=== PATIENT | male | born 1955 | race Caucasian/White ===

== ENCOUNTER → 2019-02-06 | Outpatient (CLI) | payer BC ==
--- NOTE | 2019-02-06 20:14 | CT ---
EXAMINATION TYPE: CT chest wo con DATE OF EXAM: 02/06/2019 COMPARISON: None HISTORY: 63-year-old male Cough. TECHNIQUE: Contiguous axial scanning of the chest without IV contrast. Coronal and sagittal reconstru ctions performed. CT DLP: 496.4 mGycm Automated exposure control for dose reduction was used. FINDINGS: The heart is normal size with trace anterior basilar pericardial fluid. Mild LAD calcifications are n oted. Aorta normal caliber with conventional arch vessel branching anatomy. Some prominent but not enlarged mediastinal lymph nodes measuring up to 7 mm in the precarinal region . No thoracic lymphadenopathy by CT size criteria. Very mild emphysematous change at the apices. Mild diffuse bronchial wall thickening. No consolidatio n or pleural effusion. There is an 8 mm and 5 mm nodularity along the minor fissure, axial image 31 and 33. 5 mm subpleural pulmonary nodule peripheral left base, axial image 42. 4 mm subpleural pulmonary nodule left upper lobe, axial image 21. Visualized upper abdomen shows no gross abnormality. Bones: Normal. Sternal foramina. Mild degenerative disc disease midthoracic spine. No osseous destruc tive process IMPRESSION: 1. COPD WITH VERY MILD EMPHYSEMA AT THE APICES. 2. A FEW SCATTERED PULMONARY NODULES, LARGEST MEASURING 8 MM AND THE SMALLEST MEASURING 4 MM. PER REV ISED FLEISCHNER GUIDELINES, CT IN 6-[address] IN 18-24 MONTHS IS RECOMMENDED TO ENSURE STABILITY AND A BENIGN ETIOLOGY.
== END | disposition home or self-care (01) ==
LOC: RADCTMAIN 16:56
PROVIDERS: ATTEND Internal Medicine
DX: J43.9 Emphysema, unspecified (principal); R91.8 Other nonspecific abnormal finding of lung field
CPT/HCPCS: 71250

== ENCOUNTER → 2019-02-28 | Outpatient (CLI) | payer BC | LOC: CPPFTMAIN 09:54 | PROVIDERS: ATTEND Internal Medicine | DX: R93.89 Abnormal findings on diagnostic imaging of other specified body structures (principal) | CPT/HCPCS: 94060; 94726; 94729 ==

== ENCOUNTER → 2020-05-15 | Outpatient (CLI) | payer MEDICARE ==
--- NOTE | 2020-05-15 10:51 | CT ---
EXAMINATION TYPE: CT chest wo con DATE OF EXAM: 05/15/2020 COMPARISON: Chest CT February 06, 2019 HISTORY: Other nonspecific abnormal findings of lung field CT DLP: 697 mGycm. Automated Exposure Control for Dose Reduction was Utilized. TECHNIQUE: CT scan of the thorax is performed without IV contrast. FINDINGS: LUNGS: There is stable 7 mm nodule right mid lung anteriorly image 31 and 2 adjacent 4 to 6 mm nodule s anterior and medial to this on same image and axial image 32. There is a stable 5 mm subpleural nod ule medially right mid lung axial image 32. Stable 4 to 5 mm subpleural nodule left lateral lung base recommended 45. Stable 3 mm peripheral nodule left upper lobectomy 20. No new greater than 4 mm pulm onary nodules or masses. No pleural effusion or pneumothorax seen bilaterally. Lungs remain clear. Mi ld underlying emphysematous change redemonstrated. MEDIASTINUM: Lack of IV contrast is noted to limit evaluation for mediastinal and especially hilar ad enopathy. There are no definitive new greater than 1 cm hilar or mediastinal lymph nodes. Scattered prominent but subcentimeter lymph nodes redemonstrated and stable. No cardiomegaly or pericardial eff usion is seen. Coronary artery calcification in the proximal LAD is redemonstrated. OTHER: Liver remains diffusely low dense consistent with mild diffuse fatty infiltration. Slight unde rlying scoliotic curvature with mild multilevel spurring in the spine. IMPRESSION: Overall stable findings. No new or enlarging nodules identified. Repeat CT in 18-24 month s after original study to document further stability advised as per Fleischner sided recommendations.
== END | disposition home or self-care (01) ==
LOC: RADCTMAIN 09:25
PROVIDERS: ATTEND Internal Medicine
DX: R91.8 Other nonspecific abnormal finding of lung field (principal)
CPT/HCPCS: 71250

== ENCOUNTER → 2021-04-28 | Outpatient (CLI) | payer MEDICARE ==
[2021-04-28 14:00] LABS: African American GFR (CKD) >90 (>60 ml/min/1.73 sqM); Blood Urea Nitrogen 19 mg/dL (9-20); Non-African American GFR(CKD) 90 (>60 ml/min/1.73 sqM)
--- NOTE | 2021-04-28 15:00 | CT ---
EXAMINATION TYPE: CT chest w con DATE OF EXAM: 04/28/2021 COMPARISON: 05/15/2020 HISTORY: Lung nodule CT DLP: 677 mGycm, Automated exposure control for dose reduction was used. CONTRAST: Performed injected with 100 mL of Isovue 300. TECHNIQUE: Axial images were obtained at 5 mm thick sections. Reconstructed images are reviewed on t he computer in the coronal plane. FINDINGS: Portion of the thyroid visualized is normal. There is a 1.0 cm nodule within the anterior right midlung. Series 4 image 29. This may be slightly l arger than the 0.7 cm previous. There is an adjacent slightly smaller nodule measuring 0.6 cm. Series 4 image 30. This is stable. A small nodule may be adjacent to the right mediastinal border measuring 0.4 cm. Series 4 image 31. T his is stable. There is a 0.7 cm nodule in the lateral left lung base. Series 4 image 42. This is stable. No enlarged mediastinal or hilar adenopathy is evident. The ascending aorta diameter at the level o f the main pulmonary artery is 3.3 cm. The main pulmonary artery diameter at the bifurcation is 2.[address] sections are obtained through the upper abdomen. Abdomen is essentially unremarkable. IMPRESSIONS: 1. Slight increase in size of a 1.0 cm nodule, increased from 0.7 cm within the right midlung. 2. Remaining bilateral lung nodules are stable in appearance and size
== END | disposition home or self-care (01) ==
LOC: RADCTMAIN 13:18
PROVIDERS: ATTEND Internal Medicine
DX: R91.8 Other nonspecific abnormal finding of lung field (principal)
CPT/HCPCS: 82565; 84520; 71260; 36415; Q9967

== ENCOUNTER → 2021-11-05 | Outpatient (CLI) | payer MEDICARE | END | disposition home or self-care (01) | LOC: RADCTMAIN 06:37 | PROVIDERS: ATTEND Internal Medicine | DX: R91.1 Solitary pulmonary nodule (principal) | CPT/HCPCS: 82565; 84520 ==

== ENCOUNTER → 2022-01-23 | Outpatient (CLI) | payer MEDICARE ==
[~2022-01-23] MED LIST: BEBTELOVIMAB (EUA) 175 MG/2 ML VIAL IV ONE; SODIUM CHLORIDE 0.9% 500 ML 500 ML in EMPTY BAG 1 BAG IV PRN
== END ==
LOC: PROCWHC3 11:55
PROVIDERS: ATTEND Physician Assistant
DX: Z53.9 Procedure and treatment not carried out, unspecified reason (principal)

== ENCOUNTER → 2022-07-15 | Outpatient (CLI) | payer MEDICARE ==
--- NOTE | 2022-07-15 08:06 | US ---
EXAMINATION TYPE: US duplex aorta DATE OF EXAM: 07/15/2022 COMPARISON: NONE CLINICAL HISTORY: Z13.6 SCREEN AAA. TECHNIQUE: Multiple sonographic images of the abdominal aorta are obtained. FINDINGS: EXAM MEASUREMENTS: Abdominal Aorta: AP x Width Proximal: 2.2 x 2.0 cm Mid: 2.1 x 1.8 cm Distal: 2.0 x 1.8 cm Bifurcation: RAJAT 1.3 x 1.3 cm DAVID 1.0 x 1.3 cm IMPRESSION: No ultrasound evidence for abdominal aortic aneurysm.
== END | disposition home or self-care (01) ==
LOC: RADUSWWP 07:38
PROVIDERS: ATTEND Family Medicine
DX: Z13.6 Encounter for screening for cardiovascular disorders (principal)
CPT/HCPCS: 93979

== ENCOUNTER 2023-02-05 10:45 | Observation (INO) | payer MEDICARE ==
[2023-02-05] MEDS ORDERED: NITROGLYCERIN OINT 1 INCH/GM PACKET TOPICAL STA (11:12)
[2023-02-05] MEDS ORDERED: ASPIRIN 81 MG PO STA (11:12)
--- NOTE | 2023-02-05 11:15 | ED ---
General Adult HPI - General Chief complaint: Recheck/Abnormal Lab/Rx Stated complaint: hypertension - sent by pcp Time Seen by Provider: 02/05/23 10:55 Source: patient, RN notes reviewed Mode of arrival: ambulatory Limitations: no limitations - History of Present Illness Initial comments: Patient is a pleasant 67-year-old male presenting to the emergency department with concerns for left arm discomfort. Symptoms have been somewhat progressive over the past couple of weeks. Patient is now having some discomfort in the chest as well. Discomfort is described as an ache. Chest discomfort is not present at this time and has been mild. Symptoms do worsen with exertion. Patient does have associated exertional dyspnea and fatigue. - Related Data Home Medications Medication Instructions Recorded Confirmed Multivitamin [Men's Multi-Vitamin] 1 tab PO DAILY 11/05/15 02/05/23 [place]-3 Fatty Acids/Fish Oil [Fish 1 cap PO DAILY 11/05/15 02/05/23 Oil 1,000 mg Softgel] Omeprazole [PriLOSEC] 20 mg PO DAILY 11/05/15 02/05/23 Cetirizine HCl [Zyrtec] 10 mg PO DAILY 02/05/23 02/05/23 Allergies Allergy/AdvReac Type Severity Reaction Status Date / Time shellfish derived [Shellfish] Allergy Nausea & Verified 02/05/23 12:40 Vomiting Review of Systems ROS Statement: Those systems with pertinent positive or pertinent negative responses have been documented in the HPI. ROS Other: All systems not noted in ROS Statement are negative. Constitutional: Denies: fever Eyes: Denies: eye pain ENT: Denies: ear pain Respiratory: Reports: as per HPI. Denies: cough Cardiovascular: Reports: as per HPI, chest pain Endocrine: Reports: fatigue Gastrointestinal: Denies: abdominal pain Genitourinary: Denies: dysuria Musculoskeletal: Denies: back pain Skin: Denies: rash Neurological: Denies: weakness Past Medical History Past Medical History: GERD/Reflux, Hypertension, Osteoarthritis (OA) History of Any Multi-Drug Resistant Organisms: None Reported Past Surgical History: Orthopedic Surgery Additional Past Surgical History / Comment(s): planter warts as child Past Anesthesia/Blood Transfusion Reactions: No Reported Reaction Past Psychological History: No Psychological Hx Reported Smoking Status: Light tobacco smoker Past Alcohol Use History: Occasional Past Drug Use History: None Reported General Exam Limitations: no limitations General appearance: alert, in no apparent distress Head exam: Present: normocephalic Eye exam: Present: normal appearance, PERRL, EOMI ENT exam: Present: normal exam Neck exam: Present: normal inspection. Absent: tenderness Respiratory exam: Present: normal lung sounds bilaterally. Absent: chest wall tenderness Cardiovascular Exam: Present: regular rate, normal rhythm, normal heart sounds Expanded Peripheral pulses: 2+: Radial (R), Radial (L), Posterior Tibialis (R), Posterior Tibialis (L), Dorsalis Pedis (R), Dorsalis Pedis (L) GI/Abdominal exam: Present: soft. Absent: tenderness Extremities exam: Present: normal inspection. Absent: pedal edema, calf tenderness Neurological exam: Present: alert, oriented X3, CN II-XII intact. Absent: motor sensory deficit Expanded Neurological exam: Present: protecting the airway Speech: Present: fluid speech Cranial nerves: EOM's Intact: Normal Motor strength exam: RUE: 5, LUE: 5, RLE: 5, LLE: 5 Eye Response: (4) open spontaneously Motor Response: (6) obeys commands Verbal Response: (5) oriented Psychiatric exam: Present: normal affect, normal mood Skin exam: Present: normal color Course Vital Signs 02/05/23 02/05/23 02/05/23 10:49 11:30 12:27 Temperature 98.1 F Pulse Rate 77 72 69 Respiratory 18 18 18 Rate Blood Pressure 171/103 167/103 150/92 O2 Sat by Pulse 96 98 100 Oximetry EKG Findings - EKG Results: EKG: interpreted by ERMD (Left axis. Q waves V1 and V2.), sinus rhythm, normal ST/T Medical Decision Making - Medical Decision Making Was pt. sent in by a medical professional or institution (, PA, RETORT FURNACE HELPER, urgent care, hospital, or assisted...) When possible be specific @ -Patient was sent in by his primary care physician Did you speak to anyone other than the patient for history (EMS, parent, family, police, friend...)? What history was obtained from this source @ -No Did you review nursing and triage notes (agree or disagree)? Why? @ -I reviewed and agree with nursing and triage notes Were old charts reviewed (outside hosp., previous admission, EMS record, old EKG, old radiological studies, urgent care reports/EKG's, assisted records)? Report findings @ -No old charts were reviewed Differential Diagnosis (chest pain, altered mental status, abdominal pain women, abdominal pain men, vaginal bleeding, weakness, fever, dyspnea, syncope, headache, dizziness, GI bleed, back pain, seizure, CVA, palpatations, mental health)? @ -Differential Chest Pain: Stable Angina, Unstable Angina, STEMI, NSTEMI Aortic Dissection, Pneumothorax, Musculoskeletal, Esophageal Spasm GERD, Cholecystitis, Pancreatitis, Zoster, this is not meant to be an all-inclusive list. EKG interpreted by me (3pts min.). @ -As above X-rays interpreted by me (1pt min.). @ -Chest x-ray shows some prominence of the right suprahilar region. Previous x-ray reviewed. Previous CT reviewed CT interpreted by me (1pt min.). @ -None done U/S interpreted by me (1pt. min.). @ -None done What testing was considered but not performed or refused? (CT, X-rays, U/S, labs)? Why? @ -None What meds were considered but not given or refused? Why? @ -None Did you discuss the management of the patient with other professionals (professionals i.e. , PA, RETORT FURNACE HELPER, lab, RT, psych nurse, geriatric social work professor, adult specialist, teacher, sales promotion officer, director of casework department)? Give summary @ -Case was discussed with Dr. Myrick, who will admit covering Dr. Wright Was smoking cessation discussed for >3mins.? @ -No Was critical care preformed (if so, how long)? @ -No Were there social determinants of health that impacted care today? How? (Homelessness, low income, unemployed, alcoholism, drug addiction, transportation, low edu. Level, literacy, decrease access to med. care, correction, rehab)? @ -No Was there de-escalation of care discussed even if they declined (Discuss DNR or withdrawal of care, Hospice)? DNR status @ -No What co-morbidities impacted this encounter? (DM, HTN, Smoking, COPD, CAD, Cancer, CVA, ARF, Chemo, Hep., AIDS, mental health diagnosis, sleep apnea, morbid obesity)? @ -None Was patient admitted / discharged? Hospital course, mention meds given and route, prescriptions, significant lab abnormalities, going to OR and other pertinent info. @ -Patient reevaluated and does feel a little bit better with Nitropaste. Patient updated on results and plan. Patient will be admitted Undiagnosed new problem with uncertain prognosis? @ -No Drug Therapy requiring intensive monitoring for toxicity (Heparin, Nitro, In sulin, Cardizem)? @ -No Were any procedures done? @ -No Diagnosis/symptom? @ -Chest pain Acute, or Chronic, or Acute on Chronic? @ -Acute Uncomplicated (without systemic symptoms) or Complicated (systemic symptoms)? @ -default Side effects of treatment? @ -No Exacerbation, Progression, or Severe Exacerbation? @ -No Poses a threat to life or bodily function? How? (Chest pain, [place], [place], pneumonia, PE, COPD, DKA, ARF, appy, cholecystitis, CVA, Diverticulitis, Homicidal, Suicidal, threat to staff... and all critical care pts) @ -No - Lab Data Result diagrams: 02/05/23 11:15 02/05/23 11:15 Lab Results 02/05/23 02/05/23 02/05/23 Range/Units 11:15 11:15 11:15 WBC 6.2 (3.8-10.6) k/uL RBC 4.95 (4.30-5.90) m/uL Hgb 15.0 (13.0-17.5) gm/dL Hct 43.5 (39.0-53.0) % MCV 87.9 (80.0-100.0) fL MCH 30.3 (25.0-35.0) pg MCHC 34.4 (31.0-37.0) g/dL RDW 13.5 (11.5-15.5) % Plt Count 227 (150-450) k/uL MPV 7.7 Neutrophils % 50 % Lymphocytes % 37 % Monocytes % 6 % Eosinophils % 4 % Basophils % 0 % Neutrophils # 3.1 (1.3-7.7) k/uL Lymphocytes # 2.3 (1.0-4.8) k/uL Monocytes # 0.4 (0-1.0) k/uL Eosinophils # 0.2 (0-0.7) k/uL Basophils # 0.0 (0-0.2) k/uL PT 10.3 (9.0-12.0) sec INR 1.0 (<1.2) APTT 24.1 (22.0-30.0) sec D-Dimer 0.27 (<0.60) mg/L FEU Sodium 140 (137-145) mmol/L Potassium 3.9 (3.5-5.1) mmol/L Chloride 109 H (98-107) mmol/L Carbon Dioxide 23 (22-30) mmol/L Anion Gap 8 mmol/L BUN 15 (9-20) mg/dL Creatinine 0.84 (0.66-1.25) mg/dL Est GFR (CKD-EPI)AfAm >90 (>60 ml/min/1.73 sqM) Est GFR (CKD-EPI)NonAf >90 (>60 ml/min/1.73 sqM) Glucose 94 (74-99) mg/dL Calcium 8.9 (8.4-10.2) mg/dL Magnesium 2.0 (1.6-2.3) mg/dL Total Bilirubin 0.9 (0.2-1.3) mg/dL AST 23 (17-59) U/L ALT 24 (4-49) U/L Alkaline Phosphatase 61 (38-126) U/L Troponin I (0.000-0.034) ng/mL NT-Pro-B Natriuret Pep pg/mL Total Protein 6.4 (6.3-8.2) g/dL Albumin 3.9 (3.5-5.0) g/dL 02/05/23 02/05/23 Range/Units 11:15 11:15 WBC (3.8-10.6) k/uL RBC (4.30-5.90) m/uL Hgb (13.0-17.5) gm/dL Hct (39.0-53.0) % MCV (80.0-100.0) fL MCH (25.0-35.0) pg MCHC (31.0-37.0) g/dL RDW (11.5-15.5) % Plt Count (150-450) k/uL MPV Neutrophils % % Lymphocytes % % Monocytes % % Eosinophils % % Basophils % % Neutrophils # (1.3-7.7) k/uL Lymphocytes # (1.0-4.8) k/uL Monocytes # (0-1.0) k/uL Eosinophils # (0-0.7) k/uL Basophils # (0-0.2) k/uL PT (9.0-12.0) sec INR (<1.2) APTT (22.0-30.0) sec D-Dimer (<0.60) mg/L FEU Sodium (137-145) mmol/L Potassium (3.5-5.1) mmol/L Chloride (98-107) mmol/L Carbon Dioxide (22-30) mmol/L Anion Gap mmol/L BUN (9-20) mg/dL Creatinine (0.66-1.25) mg/dL Est GFR (CKD-EPI)AfAm (>60 ml/min/1.73 sqM) Est GFR (CKD-EPI)NonAf (>60 ml/min/1.73 sqM) Glucose (74-99) mg/dL Calcium (8.4-10.2) mg/dL Magnesium (1.6-2.3) mg/dL Total Bilirubin (0.2-1.3) mg/dL AST (17-59) U/L ALT (4-49) U/L Alkaline Phosphatase (38-126) U/L Troponin I <0.012 (0.000-0.034) ng/mL NT-Pro-B Natriuret Pep 92 pg/mL Total Protein (6.3-8.2) g/dL Albumin (3.5-5.0) g/dL Disposition Clinical Impression: Chest pain Disposition: ADMITTED IP TO THIS HOSP Is patient prescribed a controlled substance at d/c from ED?: No Referrals: Deni Wright MD [Primary Care Provider] - 1-2 days Time of Disposition: 12:48
[2023-02-05 11:30] LABS: Basophils % (A) 0 %; Eosinophils # (A) 0.2 k/uL (0-0.7); Eosinophils % (A) 4 %; HCT 43.5 % (39.0-53.0); Lymphocytes # (A) 2.3 k/uL (1.0-4.8); Lymphocytes % (A) 37 %; MCH 30.3 pg (25.0-35.0); MCHC 34.4 g/dL (31.0-37.0); MCV 87.9 fL (80.0-100.0); Mean Platelet Volume 7.7; Monocytes # (A) 0.4 k/uL (0-1.0); Monocytes % (A) 6 %; Neutrophils # (A) 3.1 k/uL (1.3-7.7); Neutrophils % (A) 50 %; Platelet Count 227 k/uL (150-450); RBC 4.95 m/uL (4.30-5.90); RDW 13.5 % (11.5-15.5); WBC 6.2 k/uL (3.8-10.6)
--- NOTE | 2023-02-05 11:32 | XR ---
EXAMINATION TYPE: XR chest 2V DATE OF EXAM: 02/05/2023 11:28 AM COMPARISON: CT chest 11/11/2021, chest radiograph 09/13/2019 TECHNIQUE: XR chest 2V Frontal and lateral views of the chest. CLINICAL INDICATION:Male, 67 years old with history of Chest Pain; FINDINGS: Lungs/Pleura: There is no evidence of pleural effusion, focal consolidation, or pneumothorax. Chroni c senescent parenchyma change. Pulmonary vascularity: Unremarkable. Heart/mediastinum: Heart is normal in size. Prominence of the right suprahilar region. Musculoskeletal: No acute osseous pathology. IMPRESSION: Prominence of the right suprahilar region which may represent adenopathy versus other etiologies. Con associate business analyst further evaluation with CT chest.
[2023-02-05 11:57] LABS: ALT 24 U/L (4-49); AST 23 U/L (17-59); African American GFR (CKD) >90 (>60 ml/min/1.73 sqM); Albumin 3.9 g/dL (3.5-5.0); Alkaline Phosphatase 61 U/L (38-126); Anion Gap 8 mmol/L; Blood Urea Nitrogen 15 mg/dL (9-20); Calcium 8.9 mg/dL (8.4-10.2); Carbon Dioxide 23 mmol/L (22-30); Chloride 109 mmol/L (98-107); Glucose 94 mg/dL (74-99); Non-African American GFR(CKD) >90 (>60 ml/min/1.73 sqM); Potassium 3.9 mmol/L (3.5-5.1); Sodium 140 mmol/L (137-145); Total Bilirubin 0.9 mg/dL (0.2-1.3); Total Protein 6.4 g/dL (6.3-8.2)
[2023-02-05 12:07] LABS: Partial Thromboplastin Time 24.1 sec (22.0-30.0); Prothrombin Time 10.3 sec (9.0-12.0)
[2023-02-05] MEDS ORDERED: NITROGLYCERIN SL TABS 0.4 MG TAB SUBLINGUAL PRN (12:48)
[2023-02-05] MEDS: amLODIPine 5 MG TAB PO SCH (15:00)
[2023-02-05] MEDS: NITROGLYCERIN OINT 1 INCH/GM PACKET TOPICAL SCH ×2 (18:15→23:32)
[2023-02-05] MEDS ORDERED: RX INFO: IV CONTRAST WAS GIVEN 1 EACH MISC MISCELLANE PRN (18:30)
--- NOTE | 2023-02-05 18:35 | P.HPIM ---
History of Present Illness H&P Date: 02/05/23 History of Presenting Illness: Patient is a very pleasant 67-year-old male with a past medical history of hypertension, GERD, and osteoarthritis. He presented to the emergency de partment with a chief complaint of chest pain and left arm discomfort. Patient reports he has been experiencing intermittent pains to his left anterior chest off and on over the past couple of weeks but reports an increase in frequency with exertion. Patient reports today he began experiencing some pain in his chest which was just a mild ache but this radiated into his left arm and was accompanied by mild shortness of breath and fatigue. Patient denies any recent illnesses or infections, but does report overall noticing a decline in his daily abilities/function. Patient states he tires out more easily and feels short of breath with typical daily activities. He denies having any headache, lightheadedness, dizziness, palpitations, shortness of breath, cough or congestion, abdominal pain, nausea, vomiting, or experiencing any numbness/tingling/weakness/swelling in his extremities. He underwent full evaluation in the emergency department. Upon arrival to the emergency department patient was found to be in hypertensive urgency with blood pressure 171/103 with heart rate 77. EKG was completed showing normal sinus rhythm at 69 bpm with no noted T wave or ST abnormality showing no signs of acute ischemia. Labs completed and reviewed. CBC unremarkable. Coagulation profile normal findings with negative d-dimer of 0.27. CMP also unremarkable. Troponin negative at less than 0.012. ProBNP 92. Chest x-ray completed showing prominence of the right suprahilar region recommending further evaluation with CT chest. Discussed clinical findings, laboratory analysis, and imaging results with ED physician in detail. Patient being admitted under our services with consultation to cardiology. Review of systems: Pertinent positives and negatives as discussed in HPI, a complete review of systems was performed and all other systems are negative. Physical exam: Vital signs reviewed and stable. General: Nontoxic, no distress and appears stated age. Derm: Skin warm and dry, normal coloration for ethnicity. Head: Atraumatic, normocephalic and symmetric. Eyes: EOMs intact, no lid lag, and anicteric sclera Mouth: no lip lesions, mucus membranes moist Cardiovascular: regular rate and rhythm with normal S1S2, no murmur, positive posterior tibial pulses bilaterally, and cap refill < 2 seconds. Lungs: Respirations even, regular, and unlabored on room air. Lungs CTA bi laterally, no rhonchi, no rales, no wheezing, and no accessory muscle usage. Abdominal: soft, nontender to palpation, no guarding, no appreciable organomegaly Ext: ROM intact. No gross muscle atrophy, no edema, no contractures Neuro: Speech clear, face symmetrical and CN II-XII grossly intact with no noted focal neuro deficits Psych: Alert and oriented to person, place, time, and situation. Appropriate and pleasant affect. Assessment and Plan of Care: Chest pain radiating into left shoulder and arm, rule out acute coronary process Hypertensive urgency Abnormal imaging finding -Hypertensive urgency with blood pressure 171/103 with heart rate 77. -EKG was completed showing normal sinus rhythm at 69 bpm with no noted T wave or ST abnormality showing no signs of acute ischemia. -Labs completed and reviewed. CBC unremarkable. Coagulation profile normal findings with negative d-dimer of 0.27. CMP also unremarkable. Troponin negative at less than 0.012. ProBNP 92. -Chest x-ray completed showing prominence of the right suprahilar region recommending further evaluation with CT chest. -Discussed clinical findings, laboratory analysis, and imaging results with ED physician in detail. Patient being admitted under our services to observation unit with telemetry. -Cardiology was consulted. -Order placed for CT chest with contrast for further evaluation of prominence of the right suprahilar region. -Patient started on aspirin 325 daily -Order placed for amlodipine 5 mg daily and patient has had improvement of blood pressure currently 140/90. The patient is admitted with an anticipated less than 2 midnight stay for evaluation of chest pain CODE STATUS: Full code DVT prophylaxis: Lovenox Discussed with: Patient, RN, in ED physician Anticipated discharge date: 24-[address]: Home Patient was seen independently by Nurse Practitioner. This document was prepared using [employer] dictation software. Please allow for errors in warranty coordinator while rare they do occur. Krish Claudio NP rendered care for this patient independently, reviewed the findings and plan as documented in the note above. I did not physically speak with or examine the patient on this date. Past Medical History Past Medical History: GERD/Reflux, Hypertension, Osteoarthritis (OA) History of Any Multi-Drug Resistant Organisms: None Reported Past Surgical History: Orthopedic Surgery Additional Past Surgical History / Comment(s): planter warts as child Past Anesthesia/Blood Transfusion Reactions: No Reported Reaction Past Psychological History: No Psychological Hx Reported Smoking Status: Light tobacco smoker Past Alcohol Use History: Occasional Past Drug Use History: None Reported Medications and Allergies Home Medications Medication Instructions Recorded Confirmed Type Multivitamin [Men's Multi-Vitamin] 1 tab PO DAILY 11/05/15 02/05/23 History [place]-3 Fatty Acids/Fish Oil [Fish 1 cap PO DAILY 11/05/15 02/05/23 History Oil 1,000 mg Softgel] Omeprazole [PriLOSEC] 20 mg PO DAILY 11/05/15 02/05/23 History Cetirizine HCl [Zyrtec] 10 mg PO DAILY 02/05/23 02/05/23 History Atorvastatin [Lipitor] 20 mg PO HS 30 Days #30 tab 02/06/23 Rx amLODIPine [Norvasc] 5 mg PO DAILY 30 Days #30 tab 02/06/23 Rx Allergies Allergy/AdvReac Type Severity Reaction Status Date / Time shellfish derived [Shellfish] Allergy Nausea & Verified 02/05/23 12:40 Vomiting Physical Exam Vitals: Vital Signs Temp Pulse Resp BP Pulse Ox 02/05/23 12:27 69 18 150/92 100 02/05/23 11:30 72 18 167/103 98 02/05/23 10:49 98.1 F 77 18 171/103 96 Intake and Output 02/04/23 02/05/23 02/05/23 22:59 06:59 14:59 Other: Weight 106.594 kg Results CBC & Chem 7: 02/05/23 11:15 02/05/23 11:15 Labs: Abnormal Lab Results - Last 24 Hours (Table) 02/05/23 Range/Units 11:15 Chloride 109 H (98-107) mmol/L
[2023-02-05] MEDS ORDERED: ACETAMINOPHEN TAB 325 MG TAB PO STA (21:34)
--- NOTE | 2023-02-05 23:26 | CT ---
EXAM: CT Chest With Intravenous Contrast CLINICAL HISTORY: ITS.REASON CT Reason: x-ray showing prominence of the right suprahilar r TECHNIQUE: Axial computed tomography images of the chest with intravenous contrast. CTDI is 13.9 mGy and DLP is 547 mGy-cm. This CT exam was performed using one or more of the following dose reduction techniques: automated exposure control, adjustment of the mA and/or kV according to patient size, and/or use of iterative reconstruction technique. COMPARISON: CT chest with contrast dated 11/11/2021 FINDINGS: Lungs: There are multiple noncalcified pulmonary nodules in the right middle lobe, similar in number and morphology. The largest nodule along the minor fissure measures 7.5 mm, best appreciated on sagittal reformatted imaging and stable in size from the previous examination. The juxtapleural pulmonary nodule in the lateral basal segment of the left lower lobe measures 7.4 mm long axis from 5.1 mm previously. No focal airspace consolidation. Pleural space: Unremarkable. No pneumothorax. No significant effusion. Heart: Cardiac chambers are normal in size. Mild coronary artery calcification in the LAD distribution is of uncertain clinical significance. The pericardial effusion. Bones/joints: No acute osseous abnormality. No abnormal alignment. Soft tissues: Unremarkable. Vasculature: The thoracic aorta is normal in caliber. No dissection or aneurysm. Lymph nodes: No mediastinal lymphadenopathy. The largest precarinal lymph node measures 7 mm in short axis diameter from 6 mm previously. No hilar lymphadenopathy. IMPRESSION: 1. No mediastinal lymphadenopathy. The largest precarinal lymph node measures 7 mm in short axis diameter from 6 mm previously. No hilar lymphadenopathy. 2. The juxtapleural pulmonary nodule in the lateral basal segment of the left lower lobe measures 7.4 mm long axis from 5.1 mm previously. Fleischner Society Guidelines in low-risk patients (minimal or absent history of smoking or other known risk factors) recommend chest CT follow- up at 3-6 months. If stable consider an additional follow-up CT at 18-24 months. For high-risk patients (history of smoking or other known risk factors) recommend chest CT follow-up in 3-6 months and then at 18-24 months. 3. There are multiple noncalcified pulmonary nodules in the right middle lobe, similar in number and morphology. The largest nodule along the minor fissure measures 7.5 mm, best appreciated on sagittal reformatted imaging and stable in size from the previous examination. 4. No focal airspace consolidation. No pleural effusion or pneumothorax.
[2023-02-06 03:37] VITALS: RESP 18
[2023-02-06] MEDS: NITROGLYCERIN OINT 1 INCH/GM PACKET TOPICAL SCH (05:26)
[2023-02-06 07:30] VITALS: BP 144/86; PULSE 70; TEMP 97.7
[2023-02-06] MEDS: amLODIPine 5 MG TAB PO SCH (08:44)
[2023-02-06] MEDS ORDERED: LORATADINE 10 MG TAB PO SCH (09:00)
[2023-02-06] MEDS ORDERED: NON FORMULARY DRUG (Omega-3 Fatty Acids/Fish Oil [Fish Oil 1,000 Mg Softgel] 1 EACH Capsul PO SCH (09:00)
[2023-02-06] MEDS ORDERED: ASPIRIN 325 MG TAB PO SCH (09:00)
[2023-02-06] MEDS ORDERED: ENOXAPARIN 40 MG/0.4 ML SYRINGE SQ SCH (09:00)
[2023-02-06] MEDS ORDERED: PANTOPRAZOLE 40 MG TABLET PO SCH (09:00)
[2023-02-06 09:54] LABS: Chol/HDL Ratio 3.75 Ratio; LDL Cholesterol,Calculated 97.1 mg/dL (0.0-131.0)
--- NOTE | 2023-02-06 12:49 | P.DS ---
Providers Date of admission: 02/05/23 12:50 Expected date of discharge: 02/06/23 Attending physician: Mal Ng MD Consults: 02/05/23 12:48 Consult Physician Urgent Consulting Provider: Jayro Esquivel Consult Reason/Comments: cp Do you want consulting provider notified?: Yes Primary care physician: [facility] Course: Discharge Diagnosis: Chest pain radiating into left shoulder and arm, acute coronary event ruled out. Patient started on amlodipine 5 mg daily and atorvastatin 20 mg nightly. EKGs were evaluated showing normal sinus mechanism with no significant T-wave or ST abnormalities. Troponins were trended all negative at less than 0.0123 draws. Patient was evaluated by forest management professor and they're recommending outpatient stress test. Patient medically stable for discharge at this time and to follow up outpatient with her office next week for recommended stress testing. Hypertensive urgency, patient was started on amlodipine 5 mg daily. Blood pressure is much better controlled throughout the night and this morning. Patient being discharged home on amlodipine 5 mg daily and instructed to monitor blood pressures twice daily and document these findings and a daily log/Journal to bring with him to his next doctor's appointment, therefore additional changes may be made if needed to current dosing and/or additional antihypertensive medications can be added to his regimen. Blood pressure 144/86 upon discharge. Abnormal imaging finding, pulmonary nodules. CT chest with IV contrast was completed in radiology report reviewed stating no mediastinal lymphadenopathy with largest precarinal lymph node measuring 7 mm in short axis diameter from 6 mm previously, no hilar lymphadenopathy, the juxtapleural pulmonary nodule in the lateral basal segment of the left lower lobe measures 7.4 mm long access from 5.1 mm previously, multiple noncalcified pulmonary nodules in the right middle lobe similar in number and morphology from previous examinations with largest nodule along the minor fissure measuring 7.5 mm. Patient will need follow-up CT in 3-6 months and again in 18-24 months. Hospital Course: Patient is a very pleasant 67-year-old male with a past medical history of hypertension, GERD, and osteoarthritis. He presented to the emergency department with a chief complaint of chest pain and left arm discomfort. Kirstin ent reports he has been experiencing intermittent pains to his left anterior chest off and on over the past couple of weeks but reports an increase in frequency with exertion. Patient reports today he began experiencing some pain in his chest which was just a mild ache but this radiated into his left arm and was accompanied by mild shortness of breath and fatigue. Patient denies any recent illnesses or infections, but does report overall noticing a decline in his daily abilities/function. Patient states he tires out more easily and feels short of breath with typical daily activities. He denies having any headache, lightheadedness, dizziness, palpitations, shortness of breath, cough or congestion, abdominal pain, nausea, vomiting, or experiencing any numbness/tingling/weakness/swelling in his extremities. He underwent full evaluation in the emergency department. Upon arrival to the emergency department patient was found to be in hypertensive urgency with blood pressure 171/103 with heart rate 77. EKG was completed showing normal sinus rhythm at 69 bpm with no noted T wave or ST abnormality showing no signs of acute ischemia. Labs completed and reviewed. CBC unremarkable. Coagulation profile normal findings with negative d-dimer of 0.27. CMP also unremarkable. Troponin negative at less than 0.012. ProBNP 92. Chest x-ray completed showing prominence of the right suprahilar region recommending further evaluation with CT chest. Discussed clinical findings, laboratory analysis, and imaging results with ED physician in detail. Patient being admitted under our services with consultation to cardiology. Troponins were trended overnight all negative at less than 0.0123 draws. Lipid profile was unremarkable. Hemoglobin A1c was drawn but currently pending. Repeat morning EKG again showing normal sinus rhythm at 63 bpm and again with no noted T wave or ST abnormality showing no signs of acute ischemia. Medically, patient is stable at this time. Cardiology recommending outpatient stress testing with her office next week. Patient is free from any reports of chest pain and/or discomfort at this time and is medically stable for discharge home. Patient to follow up outpatient with PCP and cardiology as directed. Physical exam: Vital signs reviewed and stable. General: Nontoxic, no distress and appears stated age. Derm: Skin warm and dry, normal coloration for ethnicity. Head: Atraumatic, normocephalic and symmetric. Eyes: EOMs intact, no lid lag, and anicteric sclera Mouth: no lip lesions, mucus membranes moist Cardiovascular: regular rate and rhythm with normal S1S2, no murmur, positive posterior tibial pulses bilaterally, and cap refill < 2 seconds. Lungs: Respirations even, regular, and unlabored on room air. Lungs CTA bilaterally, no rhonchi, no rales, no wheezing, and no accessory muscle usage. Abdominal: soft, nontender to palpation, no guarding, no appreciable organomegaly Ext: ROM intact. No gross muscle atrophy, no edema, no contractures Neuro: Speech clear, face symmetrical and CN II-XII grossly intact with no noted focal neuro deficits Psych: Alert and oriented to person, place, time, and situation. Appropriate and pleasant affect. A total of 32 minutes of time were spent preparing this complex discharge summary. Pt was discharged on 02/06/23 at 12:40 PM. Patient was seen independently by Nurse Practitioner. This document was prepared using [employer] dictation software. Please allow for errors in bicycle ii assembler while rare they do occur. Plan - Discharge Summary New Discharge Prescriptions: New Atorvastatin [Lipitor] 20 mg PO HS 30 Days #30 tab amLODIPine [Norvasc] 5 mg PO DAILY 30 Days #30 tab Continue Omeprazole [PriLOSEC] 20 mg PO DAILY [place]-3 Fatty Acids/Fish Oil [Fish Oil 1,000 mg Softgel] 1 cap PO DAILY Multivitamin [Men's Multi-Vitamin] 1 tab PO DAILY Cetirizine HCl [Zyrtec] 10 mg PO DAILY Discharge Medication List Multivitamin [Men's Multi-Vitamin] 1 tab PO DAILY 11/05/15 [History] [place]-3 Fatty Acids/Fish Oil [Fish Oil 1,000 mg Softgel] 1 cap PO DAILY 11/05/15 [History] Omeprazole [PriLOSEC] 20 mg PO DAILY 11/05/15 [History] Cetirizine HCl [Zyrtec] 10 mg PO DAILY 02/05/23 [History] Atorvastatin [Lipitor] 20 mg PO HS 30 Days #30 tab 02/06/23 [Rx] amLODIPine [Norvasc] 5 mg PO DAILY 30 Days #30 tab 02/06/23 [Rx] Follow up Appointment(s)/Referral(s): Dandy Carrero MD [STAFF PHYSICIAN] - 1 Week (Office will call patient with date and time of appointment) Deni Wright MD [Primary Care Provider] - 1-2 days Activity/Diet/Wound Care/Special Instructions: Activity: As tolerated. Take breaks as needed. Diet: Heart healthy and carb consistent diet. Avoid salts, or foods with hidden salts such as canned or boxed foods and frozen dinners. Extra salt makes your heart work harder and traps the fluid in your body for longer. Special Instructions: Take all of your medications as directed and remember to keep all of your doctor's appointments and follow-up as needed. You will need a follow up CT chest in 3-6 months and again in 18-24 months secondary to small nodules noted on CT imaging. Recommend purchasing a blood pressure cuff from your local drugstore and monitoring her blood pressure twice daily at home. Please document these findings in a daily log/Journal tubing with you to her next doctor's appointment therefore additional changes in your antihypertensive medication dosing and/or additional medications may be added as needed to establish optimal blood pressure control. Thank you for allowing us to participate in your care, it was truly a pleasure having you for our patient!!! Discharge Disposition: HOME SELF-CARE
--- NOTE | 2023-02-06 15:54 | P.CRDCN ---
History of Present Illness Consult date: 02/06/23 Consult reason: chest pain History of present illness: This is Antwan Balderas NP, I'm dictating on behalf of Dr. Carrero's H&P and A&P The patient was interviewed and examined. HPI: Patient is a pleasant 67 year old male who presented to the hospital with complaints of chest pain. He reports that he has been having left arm pain, mostly at night, for almost a month now. He reports that the left arm would ache at night, and then go away. He reports it felt numb at times. He states over the last couple of days the aching pain in his arm progressively worsened, until last night when he was unable to sleep. He reports some associated f atigue. Patient presented to the ER for evaluation. EKG was completed which did not demonstrate any ST elevation or depression, or T-wave inversion. Serial troponins have been negative. Patient has a pertinent past medical history that includes GERD, hypertension. ROS: [No fever, chills, or rigors] [no cough, phlegm, or expectoration] [no nausea, vomiting, or diarrhea] [no hematuria, dysuria] [no musculoskelatal complaints] [no strokes or seizures] [no skin lesions] EXAMINATION: GENERAL: Well-appearing, well-nourished and in no acute distress. NECK: Supple without JVD or thyromegaly. LUNGS: Breath sounds clear to auscultation bilaterally. Respiration equal and unlabored. No wheezes, rales or rhonchi. HEART: Regular rate and rhythm without murmurs, rubs or gallops. S1 and S2 heard. EXTREMITIES: Normal range of motion, no edema. No clubbing or cyanosis. Peripheral pulses intact and strong. REVIEW OF LABS, ECG & MEDICAL DATA: LABS: White count 6.2, hemoglobin 15, platelets 227, sodium 140, potassium 3.9, chloride 109, BUN 15, creatinine 0.84, hemoglobin A1c 5.7, calcium 8.9, magnesium 2.0, serial troponins 3-less than 0.012, BNP 92, triglycerides 112, cholesterol 163, LDL 97, HDL 43.5 EKG: Normal sinus rhythm IMAGING: Chest x-ray dated 02/05/2023 demonstrates prominence of the right suprahilar region which may represent adenopathy versus other etiologies, consider further evaluation with CT chest. CT chest with IV contrast dated 02/05/2023 demonstrates no mediastinal lymphadenopathy, the largest precarinal lymph node measures 7 mm in short axis diameter from 6 mm previously, no hilar lymphadenopathy, the juxtapleural pulmonary nodule in the lateral basal segment of the left lower lobe measures 7.4 mm long axis from 5.1 mm previously. There are multiple noncalcified pulmonary nodules in the right middle lobe, similar in number and morphology, the largest nodule along the minor fissure measures 7.5 mm, best appreciated on sagittal reformatted imaging and stable in size from the previous examination, no focal air space consolidation, no pleural effusion or pneumothorax. VITALS: Temp 97.7, pulse 70, respirations 18, blood pressure 144/86, O2 saturation 96% on room air IMPRESSION: 1. Chest pain, not likely cardiac in nature 2. Left arm pain, not likely cardiac in nature PLAN: Start atorvastatin 21 g daily Continue amlodipine 5 mg daily at discharge Discontinue Nitropaste Have patient walk up and down the hallway. If no symptoms are present, may be discharged from a cardiac standpoint. Follow-up with Dr. Carrero in the office. Plan for outpatient stress test. Thank you for the consult and allowing us to participate in the care of this pa tiekelvin. Past Medical History Past Medical History: GERD/Reflux, Hypertension, Osteoarthritis (OA) History of Any Multi-Drug Resistant Organisms: None Reported Past Surgical History: Orthopedic Surgery Additional Past Surgical History / Comment(s): planter warts as child Past Anesthesia/Blood Transfusion Reactions: No Reported Reaction Past Psychological History: No Psychological Hx Reported Smoking Status: Light tobacco smoker Past Alcohol Use History: Occasional Past Drug Use History: None Reported Medications and Allergies Home Medications Medication Instructions Recorded Confirmed Type Multivitamin [Men's Multi-Vitamin] 1 tab PO DAILY 11/05/15 02/05/23 History [place]-3 Fatty Acids/Fish Oil [Fish 1 cap PO DAILY 11/05/15 02/05/23 History Oil 1,000 mg Softgel] Omeprazole [PriLOSEC] 20 mg PO DAILY 11/05/15 02/05/23 History Cetirizine HCl [Zyrtec] 10 mg PO DAILY 02/05/23 02/05/23 History Atorvastatin [Lipitor] 20 mg PO HS 30 Days #30 tab 02/06/23 Rx amLODIPine [Norvasc] 5 mg PO DAILY 30 Days #30 tab 02/06/23 Rx Allergies Allergy/AdvReac Type Severity Reaction Status Date / Time shellfish derived [Shellfish] Allergy Nausea & Verified 02/05/23 12:40 Vomiting Physical Exam Vitals: Vital Signs Temp Pulse Pulse Resp BP BP Pulse Ox 02/06/23 07:00 97.7 F 70 18 144/86 96 02/06/23 02:51 98.3 F 67 18 145/79 97 02/05/23 20:06 97.7 F 76 17 161/85 96 02/05/23 16:02 97.5 F L 97 16 181/92 96 02/05/23 14:57 68 18 149/107 98 02/05/23 14:00 80 18 140/90 99 02/05/23 12:27 69 18 150/92 100 02/05/23 11:30 72 18 167/103 98 02/05/23 10:49 98.1 F 77 18 171/103 96 Intake and Output 02/05/23 02/06/23 02/06/23 22:59 06:59 14:59 Other: # Voids 1 1 Weight 106.594 kg Results 02/05/23 11:15 02/05/23 11:15 Cardiac Enzymes 02/05/23 02/05/23 02/05/23 Range/Units 11:15 11:15 13:22 AST 23 (17-59) U/L Troponin I <0.012 <0.012 (0.000-0.034) ng/mL 02/05/23 Range/Units 16:59 AST (17-59) U/L Troponin I <0.012 (0.000-0.034) ng/mL Coagulation 02/05/23 Range/Units 11:15 PT 10.3 (9.0-12.0) sec APTT 24.1 (22.0-30.0) sec CBC 02/05/23 Range/Units 11:15 WBC 6.2 (3.8-10.6) k/uL RBC 4.95 (4.30-5.90) m/uL Hgb 15.0 (13.0-17.5) gm/dL Hct 43.5 (39.0-53.0) % Plt Count 227 (150-450) k/uL Comprehensive Metabolic Panel 02/05/23 Range/Units 11:15 Sodium 140 (137-145) mmol/L Potassium 3.9 (3.5-5.1) mmol/L Chloride 109 H (98-107) mmol/L Carbon Dioxide 23 (22-30) mmol/L BUN 15 (9-20) mg/dL Creatinine 0.84 (0.66-1.25) mg/dL Glucose 94 (74-99) mg/dL Calcium 8.9 (8.4-10.2) mg/dL AST 23 (17-59) U/L ALT 24 (4-49) U/L Alkaline Phosphatase 61 (38-126) U/L Total Protein 6.4 (6.3-8.2) g/dL Albumin 3.9 (3.5-5.0) g/dL Current Medications Generic Name Dose Route Start Last Admin Trade Name Freq PRN Reason Stop Dose Admin Amlodipine Besylate 5 mg 02/05/23 13:15 02/06/23 08:44 Amlodipine 5 Mg Tab PO 5 mg DAILY ALAN Administration Aspirin 325 mg 02/06/23 09:00 02/06/23 08:44 Aspirin 325 Mg Tab PO 325 mg DAILY ALAN Administration Atorvastatin Calcium 20 mg 02/06/23 21:00 Atorvastatin 20 Mg Tab PO HS [facility] Enoxaparin Sodium 40 mg 02/06/23 09:00 02/06/23 08:44 Enoxaparin 40 Mg/0.4 Ml Syringe SQ Not Given DAILY [facility] Loratadine 10 mg 02/06/23 09:00 02/06/23 08:44 Loratadine 10 Mg Tab PO 10 mg DAILY ALAN Administration Miscellaneous Information 1 each 02/05/23 18:30 Rx Info: Iv Contrast Was Given 1 Each [facility] [place] 02/07/23 18:31 DAILY PRN Per Protocol Nitroglycerin 0.4 mg 02/05/23 12:48 Nitroglycerin Sl Tabs 0.4 Mg Tab SUBLINGUAL Q5M PRN Chest Pain Non-Formulary Medication 1 cap 02/06/23 09:00 02/06/23 08:42 [place]-3 Fatty Acids/Fish Oil [Fish Oil 1,000 Mg Softgel] PO Not Given DAILY ALAN Pantoprazole Sodium 40 mg 02/06/23 09:00 02/06/23 08:44 Pantoprazole 40 Mg Tablet PO 40 mg DAILY ALAN Administration Intake and Output 02/05/23 02/06/23 02/06/23 22:59 06:59 14:59 Other: # Voids 1 1 Weight 106.594 kg 02/05/23 11:15 02/05/23 11:15
[2023-02-06] MEDS ORDERED: ATORVASTATIN 20 MG TAB PO SCH (21:00)
== END 2023-02-06 13:30 | disposition home or self-care (01) ==
LOC: EC 10:45 → 6NMEDSUR 12:50
PROVIDERS: ADMIT Student in an Organized Health Care Education/Training Program; ATTEND Student in an Organized Health Care Education/Training Program
DX: R07.9 Chest pain, unspecified (principal); I16.0 Hypertensive urgency; R91.8 Other nonspecific abnormal finding of lung field; K21.9 Gastro-esophageal reflux disease without esophagitis; I10 Essential (primary) hypertension; M19.90 Unspecified osteoarthritis, unspecified site; F17.200 Nicotine dependence, unspecified, uncomplicated; Z98.890 Other specified postprocedural states; Z79.899 Other long term (current) drug therapy; Z91.013 Allergy to seafood
CPT/HCPCS: 99284; 36415; 93005; 85379; 83880; 80061; 80053; 83735; 84484; 85025; 85610; 85730; 83036; 71046; 71260; G0378 ×2; Q9967

== ENCOUNTER → 2023-08-09 | Outpatient (CLI) | payer MEDICARE ==
--- NOTE | 2023-08-09 16:50 | US ---
EXAMINATION TYPE: US thyroid st tissue head/neck DATE OF EXAM: 08/09/2023 COMPARISON: NONE CLINICAL INDICATION: Male, 68 years old with history of R22.1 SWELL MASS LUMP NECK; Pt states palpabl e lump left posterior neck x few years TECHNIQUE: Multiple grayscale and color Doppler ultrasound images of the left posterior neck in the p atient's region of palpable abnormality were obtained. FINDINGS/IMPRESSION: There is a well-circumscribed ovoid mass within the soft tissues of the left pos terior neck measuring 4.5 x 1.8 x 5.7 cm. This demonstrates striations that blends in with the surrou nding tissue. No internal color flow. This is most consistent with a benign lipoma.
== END | disposition home or self-care (01) ==
LOC: RADUSWWP 16:20
PROVIDERS: ATTEND Family Medicine
DX: R22.1 Localized swelling, mass and lump, neck (principal)
CPT/HCPCS: 76536

== ENCOUNTER 2023-10-20 11:52 | Day surgery (SDC) | payer MEDICARE ==
[2023-10-14 17:42] VITALS: BMI 33.5
[~2023-10-20 11:52] MED LIST changes: -BEBTELOVIMAB (EUA) 175 MG/2 ML VIAL IV ONE; +DEXAMETHASONE SOD PHOSPHATE 4 MG/ML 1 ML VIAL IV ONE; +FAMOTIDINE 20 MG/2 ML VIAL IV PRN; +HYDROmorphone 0.5 MG/0.5 ML SYRINGE IVP PRN; +LACTATED RINGERS 1,000 ML IV SCH; +ONDANSETRON 4 MG/2 ML VIAL IVP ONE; +Pre Op ABX Message 1 EACH MISC MISCELLANE ONE; -SODIUM CHLORIDE 0.9% 500 ML 500 ML in EMPTY BAG 1 BAG IV PRN
[2023-10-20 12:27] VITALS: TEMP 97
[2023-10-20] MEDS ORDERED: fentaNYL (PF) 50 MCG/ML 2 ML AMP ONE (12:31)
[2023-10-20] MEDS ORDERED: PROPOFOL 10 MG/ML 20 ML VIAL IV ONE (12:31)
[2023-10-20] MEDS ORDERED: MIDAZOLAM 2 MG/2 ML VIAL ONE (12:31)
[2023-10-20] MEDS ORDERED: SUCCINYLCHOLINE CHLORIDE 200 MG/10 ML VIAL IV ONE (12:31)
[2023-10-20] MEDS ORDERED: KETOROLAC 15 MG/ML 1 ML VIAL ONE (12:31)
[2023-10-20] MEDS ORDERED: PHENYLEPHRINE-0.9% NACL SYG 1,000 MCG/10 ML SYRINGE ONE (12:31)
[2023-10-20] MEDS ORDERED: GLYCOPYRROLATE 0.2 MG/ML 2 ML VIAL ONE (12:31)
[2023-10-20] MEDS ORDERED: LIDOCAINE 1%-EPI 1:100,000 50 ML VIAL SQ ONE ×2 (12:53)
[2023-10-20] MEDS ORDERED: BACITRACIN ZINC 500 UNIT/GM OINT 28.4 GM TUBE TOPICAL ONE (13:30)
--- NOTE | 2023-10-20 13:39 | P.OP ---
Date of Procedure: 10/20/23 Preoperative Diagnosis: Left posterior neck Postoperative Diagnosis: Same Procedure(s) Performed: Excision left posterior neck lipoma 5x4 cm with complex closure- Anesthesia: THAISA Surgeon: Roberto Amanda Estimated Blood Loss (ml): 10 Pathology: other (Posterior neck mass) Condition: stable Disposition: PACU Indications for Procedure: This 68-year-old white male with a slowly enlarging subcutaneous mass left posterior neck over the upper trapezius Operative Findings: 5 x 4 cm left posterior lower neck lipoma well encapsulated down to the trapezius muscle Description of Procedure: Patient brought in the operative suite and placed in a supine position. The patient underwent induction of general anesthesia with oral endotracheal intubation without difficulty. The patient was turned on to a right lateral decubitus position with appropriate padding and positioning accomplished. The patient was then prepped and draped in usual aseptic fashion. 1% lidocaine with 1-100,000 epinephrine was infused subcutaneously in field block fashion. This was left to work for 7 minutes vasoconstrictive effect. An incision was made overlying the mass sharply through the skin and subcutaneous tissue and superficial muscular layer. The lipoma was visualized and excised from the surrounding tissue grossly entirely down to the trapezius muscle. Hemostasis was gained with electrocautery. Wound was copiously irrigated with sterile normal saline and good hemostasis remained. The deep and superficial subcutaneous layers were closed with inverted interrupted 3-0 Vicryl suture skin closed with running locking 4-0 Prolene suture. Bacitracin ointment and sterile pressure dressing was placed. The patient was allowed to emerge from general anesthesia having tolerated procedure well was extubated in the operating suite and transferred to postop recovery area in satisfactory condition.
[2023-10-20 14:07] VITALS: RESP 16
[2023-10-20 14:57] VITALS: BP 122/77; PULSE 89
== END 2023-10-20 14:55 | disposition home or self-care (01) ==
LOC: OR 11:52
PROVIDERS: ATTEND Otolaryngology
DX: D17.0 Benign lipomatous neoplasm of skin and subcutaneous tissue of head, face and neck (principal); I10 Essential (primary) hypertension; E78.5 Hyperlipidemia, unspecified; G47.33 Obstructive sleep apnea (adult) (pediatric); M19.90 Unspecified osteoarthritis, unspecified site; Z79.899 Other long term (current) drug therapy
CPT/HCPCS: 88304; 21552; C1763; J2250; J0330; J1100; J0690; J2405; J3010; J3490; J1885; J2704; J2371

== ENCOUNTER 2024-06-20 07:51 | Day surgery (SDC) | payer MEDICARE ==
[2024-06-15 10:37] VITALS: BMI 35.4
[2024-06-20 08:27] VITALS: TEMP 97.3
[2024-06-20] MEDS: IV FLUID CONTINUATION 1,000 ML IV ONE (08:34)
[2024-06-20] MEDS: LACTATED RINGERS 1,000 ML IV SCH (08:35)
[2024-06-20] MEDS ORDERED: LIDOCAINE 1% INJ 10MG/ML (20 ML MDV) ONE (09:05)
[2024-06-20] MEDS ORDERED: PROPOFOL 10 MG/ML 20 ML VIAL IV ONE (09:05)
--- NOTE | 2024-06-20 09:12 | P.GSHP ---
History of Present Illness H&P Date: 06/20/24 Chief Complaint: Colon cancer screening 69-year-old male here for colonoscopy. Patient's last colonoscopy 7 to 10 years ago. Thinks he has had history of colon polyps. Patient recently has had a small area of soreness along the side of the anus on the right-hand side. This has been present for the last 1 to 2 months. Past Medical History Past Medical History: GERD/Reflux, Hypertension, Osteoarthritis (OA) Additional Past Medical History / Comment(s): Umbilical hernia. Some hearing loss. History of Any Multi-Drug Resistant Organisms: None Reported Past Surgical History: Orthopedic Surgery Additional Past Surgical History / Comment(s): Planter warts as child, mass removed from right hand 09/28/23, lipoma removed from posterior neck 10/20/23.colonoscopy polyps, egd Past Anesthesia/Blood Transfusion Reactions: No Reported Reaction Additional Past Anesthesia/Blood Transfusion Reaction / Comment(s): no blood transfusion Smoking Status: Former smoker - Past Family History Mother Family Medical History: Dementia Medications and Allergies Home Medications Medication Instructions Recorded Confirmed Type Multivitamin [Men's Multi-Vitamin] 1 tab PO DAILY 11/05/15 06/15/24 History [place]-3 Fatty Acids/Fish Oil [Fish 1 cap PO DAILY 11/05/15 06/15/24 History Oil 1,000 mg Softgel] Omeprazole [PriLOSEC] 20 mg PO QAM 11/05/15 06/15/24 History Cetirizine HCl [Zyrtec] 10 mg PO DAILY 02/05/23 06/15/24 History Atorvastatin [Lipitor] 20 mg PO QAM 10/14/23 06/15/24 History amLODIPine [Norvasc] 5 mg PO QAM 10/14/23 06/15/24 History Allergies Allergy/AdvReac Type Severity Reaction Status Date / Time mussels Allergy severe Verified 06/15/24 10:25 vomiting that stretched the muscles&veins in my neck Surgical - Exam Vital Signs Temp Pulse Resp BP Pulse Ox 97.3 F L 73 20 162/69 94 L 06/20/24 08:25 06/20/24 08:25 06/20/24 08:25 06/20/24 08:25 06/20/24 08:25 Physical exam: General: Well-developed, well-nourished HEENT: Normocephalic, sclerae nonicteric Abdomen: Nontender, nondistended Extremities: No edema Neuro: Alert and oriented Assessment and Plan (1) Colon cancer screening Narrative/Plan: Will proceed with colonoscopy at this time. Current Visit: Yes Status: Acute Code(s): Z12.11 - ENCOUNTER FOR SCREENING FOR MALIGNANT NEOPLASM OF COLON SNOMED Code(s): 349414575
--- NOTE | 2024-06-20 09:25 | P.PCN ---
Date of Procedure: 06/20/24 Procedure(s) Performed: PREOPERATIVE DIAGNOSIS: Colon cancer screening POSTOPERATIVE DIAGNOSIS: Cecal polyp, diverticulosis, small external hemorrhoids PROCEDURE: Colonoscopy with snare polypectomy ANESTHESIA: MAC SURGEON: Jayy Bear M.D. SPECIMENS: Polyp ENDOSCOPIC PROCEDURE: The patient was placed on the endoscopy table in the left decubitus position. The Olympus colonoscope was inserted into the anus and passed under direct visualization to the base of the cecum. The appendiceal orifice was visualized. From that point the scope was slowly withdrawn inspecting all surfaces carefully. There was a very small polyp at the base of the cecum. This was removed using the snare with cautery technique. The remainder of the cecum ascending transverse descending sigmoid and rectum appeared normal. There was mild left-sided diverticulosis. Retroflexion at the anus was normal. The patient had circumferential external hemorrhoids present. Mild induration of the hemorrhoids on the right-hand side is what I believe the patient was noticing. This appeared minimally inflamed. There was no overlying mucosal abnormalities to suggest any neoplastic changes. No thrombosis was noted. The patient was taken to the recovery room in stable condition per anesthesia guidelines. RECOMMENDATIONS: Resume diet. Monitor perirectal complaints. Findings appear related to chronic inflammation.
[2024-06-20 09:30] VITALS: RESP 16
[2024-06-20 09:57] VITALS: BP 150/92; PULSE 76
== END 2024-06-20 10:06 | disposition home or self-care (01) ==
LOC: ORWHC2ENDO 07:51
PROVIDERS: ATTEND Surgery
DX: Z12.11 Encounter for screening for malignant neoplasm of colon
CPT/HCPCS: 45385; 88305

== ENCOUNTER 2024-07-10 09:53 | Observation (INO) | payer MEDICARE ==
--- NOTE | 2024-07-10 10:23 | ED ---
Abdominal Pain HPI - General Chief Complaint: Abdominal Pain Stated Complaint: gallbladder Time Seen by Provider: 07/10/24 10:06 Source: patient, RN notes reviewed Mode of arrival: ambulatory Limitations: no limitations - History of Present Illness Initial Comments: 69-year-old male presents emergency department complaint of right upper quadrant abdominal pain. Patient states he has had symptoms for the last 5 to 6 days. It is sometimes worse with what he eats or moves around. Patient states he was seen in urgent care with his primary care physician who told him is more likely his gallbladder. Patient states he was trying to follow-up with his prior surgeon Dr. Bear but states pain is worsened. - Related Data Home Medications Medication Instructions Recorded Confirmed Atorvastatin [Lipitor] 20 mg PO DAILY 10/14/23 07/10/24 amLODIPine [Norvasc] 5 mg PO DAILY 10/14/23 07/10/24 Allergies Allergy/AdvReac Type Severity Reaction Status Date / Time mussels Allergy severe Verified 07/10/24 10:34 vomiting that stretched the muscles&veins in my neck Review of Systems ROS Statement: Those systems with pertinent positive or pertinent negative responses have been documented in the HPI. ROS Other: All systems not noted in ROS Statement are negative. Past Medical History Past Medical History: GERD/Reflux, Hypertension, Osteoarthritis (OA) Additional Past Medical History / Comment(s): Umbilical hernia. Some hearing loss. History of Any Multi-Drug Resistant Organisms: None Reported Past Surgical History: Hernia Repair Additional Past Surgical History / Comment(s): Planter warts as child, mass removed from right hand 09/28/23, lipoma removed from posterior neck 10/20/23. Cyst Hand. Past Anesthesia/Blood Transfusion Reactions: No Reported Reaction Past Psychological History: No Psychological Hx Reported Smoking Status: Former smoker Past Alcohol Use History: Occasional Past Drug Use History: None Reported - Past Family History Mother Family Medical History: Dementia General Exam Limitations: no limitations General appearance: alert, in no apparent distress Head exam: Present: atraumatic, normocephalic, normal inspection Eye exam: Present: normal appearance, PERRL, EOMI. Absent: scleral icterus, conjunctival injection, periorbital swelling ENT exam: Present: normal exam, mucous membranes moist Neck exam: Present: normal inspection, full ROM. Absent: tenderness, me ningismus, lymphadenopathy Respiratory exam: Present: normal lung sounds bilaterally. Absent: respiratory distress, wheezes, rales, rhonchi, stridor Cardiovascular Exam: Present: regular rate, normal rhythm, normal heart sounds. Absent: systolic murmur, diastolic murmur, rubs, gallop, clicks GI/Abdominal exam: Present: soft, tenderness, normal bowel sounds. Absent: distended, guarding, rebound, rigid Back exam: Absent: CVA tenderness (R), CVA tenderness (L) Neurological exam: Present: alert Course Vital Signs 07/10/24 10:02 Temperature 98.3 F Pulse Rate 71 Respiratory 20 Rate Blood Pressure 158/86 O2 Sat by Pulse 96 Oximetry Medical Decision Making - Medical Decision Making Was pt. sent in by a medical professional or institution (, PA, CHART PICKER, urgent care, hospital, or [facility]...) When possible be specific @ -No Did you speak to anyone other than the patient for history (EMS, parent, family, police, friend...)? What history was obtained from this source @ -No Did you review nursing and triage notes (agree or disagree)? Why? @ -I reviewed and agree with nursing and triage notes Were old charts reviewed (outside hosp., previous admission, EMS record, old EKG, old radiological studies, urgent care reports/EKG's, [facility] records)? Report findings @ -No old charts were reviewed Differential Diagnosis (chest pain, altered mental status, abdominal pain women, abdominal pain men, vaginal bleeding, weakness, fever, dyspnea, syncope, headache, dizziness, GI bleed, back pain, seizure, CVA, palpatations, mental health, musculoskeletal)? @ -Differential Abdominal Pain Men: Appendicitis, cholecystitis, diverticulosis, ischemic bowel, pancreatitis, hepatitis, UTI, gastroenteritis, AAA, incarcerated hernia, bowel obstruction, constipation, inflammatory bowel, hepatitis, peptic ulcer disease, splenic infarction, perforated viscus, testicular torsion, this is not meant to be an all-inclusive list EKG interpreted by me (3pts min.). @ -None X-rays interpreted by me (1pt min.). @ -None done CT interpreted by me (1pt min.). @ -None done U/S interpreted by me (1pt. min.). @ -ALT none shows enlarged gallbladder, obscured common bile duct, fluid collection noted next to the gallbladder What testing was considered but not performed or refused? (CT, X-rays, U/S, labs)? Why? @ -None What meds were considered but not given or refused? Why? @ -None Did you discuss the management of the patient with other professionals (omar hernandez i.e. , PA, CHART PICKER, lab, RT, psych nurse, elementary school social worker, aboriginal education teacher, teacher, parking regulation enforcement officer, employment case manager)? Give summary @ -Dr. Monk for admission Was smoking cessation discussed for >3mins.? @ -No Was critical care preformed (if so, how long)? @ -No Were there social determinants of health that impacted care today? How? (Homelessness, low income, unemployed, alcoholism, drug addiction, t ransportation, low edu. Level, literacy, decrease access to med. care, assisted, rehab)? @ -No Was there de-escalation of care discussed even if they declined (Discuss DNR or withdrawal of care, Hospice)? DNR status @ -No What co-morbidities impacted this encounter? (DM, HTN, Smoking, COPD, CAD, Cancer, CVA, ARF, Chemo, Hep., AIDS, mental health diagnosis, sleep apnea, morbid obesity)? @ -None Was patient admitted / discharged? Hospital course, mention meds given and route, prescriptions, significant lab abnormalities, going to OR and other pertinent info. @ -Admitted patient will have inpatient HIDA scan with starting IV antibiotics for cholecystitis, possible biliary dyskinesia Undiagnosed new problem with uncertain prognosis? @ -No Drug Therapy requiring intensive monitoring for toxicity (Heparin, Nitro, Insulin, Cardizem)? @ -No Were any procedures done? @ -No Diagnosis/symptom? @ -Cholecystitis Acute, or Chronic, or Acute on Chronic? @ -Acute Uncomplicated (without systemic symptoms) or Complicated (systemic symptoms)? @ -Uncomplicated Side effects of treatment? @ -No Exacerbation, Progression, or Severe Exacerbation? @ -No Poses a threat to life or bodily function? How? (Chest pain, [place], [place], pneumonia, PE, COPD, DKA, ARF, appy, cholecystitis, CVA, Diverticulitis, Homicidal, Otliia cidal, threat to staff... and all critical care pts) @ -No - Lab Data Result diagrams: 07/10/24 10:27 07/10/24 10:27 Lab Results 07/10/24 07/10/24 07/10/24 Range/Units 10:27 10:27 10:27 WBC 7.6 (3.8-10.6) k/uL RBC 4.94 (4.30-5.90) m/uL Hgb 15.0 (13.0-17.5) gm/dL Hct 45.3 (39.0-53.0) % MCV 91.6 (80.0-100.0) fL MCH 30.3 (25.0-35.0) pg MCHC 33.1 (31.0-37.0) g/dL RDW 13.1 (11.5-15.5) % Plt Count 247 (150-450) k/uL MPV 7.7 Neutrophils % 61 % Lymphocytes % 26 % Monocytes % 7 % Eosinophils % 3 % Basophils % 0 % Neutrophils # 4.6 (1.3-7.7) k/uL Lymphocytes # 2.0 (1.0-4.8) k/uL Monocytes # 0.5 (0-1.0) k/uL Eosinophils # 0.2 (0-0.7) k/uL Basophils # 0.0 (0-0.2) k/uL Sodium 141 (137-145) mmol/L Potassium 4.2 (3.5-5.1) mmol/L Chloride 109 H (98-107) mmol/L Carbon Dioxide 28 (22-30) mmol/L Anion Gap 4 mmol/L BUN 13 (9-20) mg/dL Creatinine 0.95 (0.66-1.25) mg/dL Est GFR (CKD-EPI)AfAm >90 (>60 ml/min/1.73 sqM) Est GFR (CKD-EPI)NonAf 81 (>60 ml/min/1.73 sqM) Glucose 101 H (74-99) mg/dL Plasma Lactic Acid Syed 1.0 (0.7-2.0) mmol/L Calcium 9.2 (8.4-10.2) mg/dL Total Bilirubin 1.0 (0.2-1.3) mg/dL AST 16 L (17-59) U/L ALT 17 (4-49) U/L Alkaline Phosphatase 82 (38-126) U/L Total Protein 6.2 L (6.3-8.2) g/dL Albumin 3.7 (3.5-5.0) g/dL Lipase 89 (23-300) U/L Urine Color Urine Appearance (Clear) Urine pH (5.0-8.0) Ur Specific [place] (1.001-1.035) Urine Protein (Negative) Urine Glucose (UA) (Negative) Urine Ketones (Negative) Urine Blood (Negative) Urine Nitrite (Negative) Urine Bilirubin (Negative) Urine Urobilinogen (<2.0) mg/dL Ur Leukocyte Esterase (Negative) Urine RBC (0-5) /hpf Urine WBC (0-5) /hpf Urine Mucus (None) /hpf 07/10/24 Range/Units 10:59 WBC (3.8-10.6) k/uL RBC (4.30-5.90) m/uL Hgb (13.0-17.5) gm/dL Hct (39.0-53.0) % MCV (80.0-100.0) fL MCH (25.0-35.0) pg MCHC (31.0-37.0) g/dL RDW (11.5-15.5) % Plt Count (150-450) k/uL MPV Neutrophils % % Lymphocytes % % Monocytes % % Eosinophils % % Basophils % % Neutrophils # (1.3-7.7) k/uL Lymphocytes # (1.0-4.8) k/uL Monocytes # (0-1.0) k/uL Eosinophils # (0-0.7) k/uL Basophils # (0-0.2) k/uL Sodium (137-145) mmol/L Potassium (3.5-5.1) mmol/L Chloride (98-107) mmol/L Carbon Dioxide (22-30) mmol/L Anion Gap mmol/L BUN (9-20) mg/dL Creatinine (0.66-1.25) mg/dL Est GFR (CKD-EPI)AfAm (>60 ml/min/1.73 sqM) Est GFR (CKD-EPI)NonAf (>60 ml/min/1.73 sqM) Glucose (74-99) mg/dL Plasma Lactic Acid Syed (0.7-2.0) mmol/L Calcium (8.4-10.2) mg/dL Total Bilirubin (0.2-1.3) mg/dL AST (17-59) U/L ALT (4-49) U/L Alkaline Phosphatase (38-126) U/L Total Protein (6.3-8.2) g/dL Albumin (3.5-5.0) g/dL Lipase (23-300) U/L Urine Color Light Yellow Urine Appearance Clear (Clear) Urine pH 6.5 (5.0-8.0) Ur Specific [place] 1.019 (1.001-1.035) Urine Protein Negative (Negative) Urine Glucose (UA) Negative (Negative) Urine Ketones Negative (Negative) Urine Blood Trace H (Negative) Urine Nitrite Negative (Negative) Urine Bilirubin Negative (Negative) Urine Urobilinogen <2.0 (<2.0) mg/dL Ur Leukocyte Esterase Negative (Negative) Urine RBC 4 (0-5) /hpf Urine WBC <1 (0-5) /hpf Urine Mucus Moderate H (None) /hpf Disposition Clinical Impression: Cholecystitis Disposition: ADMITTED IP TO THIS HOSP Condition: Fair Referrals: Deni Wright MD [Primary Care Provider] - 1-2 days Time of Disposition: 13:18
[2024-07-10] MEDS: SODIUM CHLORIDE 0.9% 1,000 ML IV STA (10:30)
[2024-07-10 10:36] LABS: Basophils % (A) 0 %; Eosinophils # (A) 0.2 k/uL (0-0.7); Eosinophils % (A) 3 %; HCT 45.3 % (39.0-53.0); Lymphocytes % (A) 26 %; MCH 30.3 pg (25.0-35.0); MCHC 33.1 g/dL (31.0-37.0); MCV 91.6 fL (80.0-100.0); Mean Platelet Volume 7.7; Monocytes # (A) 0.5 k/uL (0-1.0); Monocytes % (A) 7 %; Neutrophils # (A) 4.6 k/uL (1.3-7.7); Neutrophils % (A) 61 %; Platelet Count 247 k/uL (150-450); RBC 4.94 m/uL (4.30-5.90); RDW 13.1 % (11.5-15.5); WBC 7.6 k/uL (3.8-10.6)
[2024-07-10 10:49] LABS: ALT 17 U/L (4-49); AST 16 U/L (17-59); African American GFR (CKD) >90 (>60 ml/min/1.73 sqM); Albumin 3.7 g/dL (3.5-5.0); Alkaline Phosphatase 82 U/L (38-126); Anion Gap 4 mmol/L; Blood Urea Nitrogen 13 mg/dL (9-20); Calcium 9.2 mg/dL (8.4-10.2); Carbon Dioxide 28 mmol/L (22-30); Chloride 109 mmol/L (98-107); Glucose 101 mg/dL (74-99); Lipase 89 U/L (23-300); Non-African American GFR(CKD) 81 (>60 ml/min/1.73 sqM); Potassium 4.2 mmol/L (3.5-5.1); Sodium 141 mmol/L (137-145); Total Protein 6.2 g/dL (6.3-8.2)
[2024-07-10 11:12] LABS: Appearance,Urine Clear (Clear); Bilirubin,Urine Negative (Negative); Blood,Urine Trace (Negative); Color,Urine Light Yellow; Glucose,Urine (UA) Negative (Negative); Ketones,Urine Negative (Negative); Leukocyte Esterase,Urine Negative (Negative); Mucus,Urine Moderate /hpf; Nitrite,Urine Negative (Negative); PH, Urine 6.5 (5.0-8.0); Protein,Urine Negative (Negative); RBC,Urine 4 /hpf (0-5); Specific Gravity,Urine 1.019 (1.001-1.035); Urobilinogen,Urine <2.0 mg/dL (<2.0); WBC,Urine <1 /hpf (0-5)
--- NOTE | 2024-07-10 11:20 | US ---
EXAMINATION TYPE: US gallbladder DATE OF EXAM: 07/10/2024 COMPARISON: NONE CLINICAL INDICATION: Male, 69 years old with history of pain; Pain TECHNIQUE: Grayscale and color Doppler imaging of the right upper quadrant. FINDINGS: EXAM MEASUREMENTS: Liver Length: 16.8 cm Gallbladder Wall: 0.26 cm CBD: Obscured Right Kidney: 10.9 x 5.6 x 5.6 cm TICKER INSTALLER NOTES: Exam is very limited due to gas. Pancreas: Obscured Liver: *Increased attenuation and echogenicity. Heterogeneous, limited. Hypoechoic area seen adjacen t to the gallbladder: 2.4 x 0.8 x 1.0 cm. Gallbladder: *Measures 9.5 cm in length. Limited visibility of neck. Evidence for sonographic Naylor's sign: No CBD: Obscured Right Kidney: Hyperechoic area seen lower pole: 1.3 x 1.1 x 1.3 cm. IMPRESSION: 1. Hepatic steatosis with focal fatty sparing in the gallbladder fossa. 2. Distended gallbladder without evidence for acute cholecystitis. [facility], , 07/10/2024 11:18 AM
[2024-07-10] MEDS ORDERED: NALOXONE 0.4 MG/ML 1 ML VIAL IV PRN (13:18)
[2024-07-10] MEDS: SODIUM CHLORIDE 0.9% 1,000 ML IV SCH (14:19)
--- NOTE | 2024-07-10 14:44 | P.GSCN ---
History of Present Illness Consult date: 07/10/24 History of present illness: CHIEF COMPLAINT: Right upper quadrant abdominal pain HISTORY OF PRESENT ILLNESS: This is a 69-year-old male who presented to the hospital with complaints of right upper quadrant abdominal pain for the past 5 days. He does report that the pain is worse with movement. He reports that the pain radiates to the back at times. He denies any nausea or vomiting. Denies any fevers chills or sweats. Gallbladder ultrasound had reported a fatty liver and distended gallbladder. Past abdominal surgical history does include an umbilical hernia repair. Patient admitted to the hospital for cholecystitis. PAST MEDICAL HISTORY: GERD/Reflux, Hypertension, Osteoarthritis (OA) PAST SURGICAL HISTORY: Umbilical hernia repair MEDICATIONS: See below ALLERGIES: See below SOCIAL HISTORY: No illicit drug use. REVIEW OF SYSTEMS: CONSTITUTIONAL: Denies fever or chills. HEENT: Denies blurred vision, vision changes, or eye pain. Denies hemoptysis CARDIOVASCULAR: Denies chest pain or pressure. RESPIRATORY: No shortness of breath. GASTROINTESTINAL: See HPI for pertinent findings HEMATOLOGIC: Denies bleeding disorders. GENITOURINARY: Denies any blood in urine or increased urinary frequency. SKIN: Denies pruitis. Denies rash. PHYSICAL EXAM: VITAL SIGNS: Reviewed GENERAL: Well-developed in no acute distress. HEENT: No sclera icterus. Extraocular movements grossly intact. Moist buccal mucosa. Head is atraumatic, normocephalic. No nasal drainage. ABDOMEN: Soft. Nondistended. NEUROLOGIC: Alert and oriented. Cranial nerves II through XII grossly intact. LABORATORY DATA: WBC 7.6 Hgb 15 platelets 247 Sodium 141 potassium 4.2 creatinine 0.95 Lactic acid 1.0 Total bili 1.0 LFTs normal Lipase 89 IMAGING: Gallbladder ultrasound reports hepatic steatosis with focal fatty sparing in the gallbladder fossa. Distended gallbladder without evidence for acute cholecystitis ASSESSMENT: 1. Right upper quadrant abdominal pain with distended gallbladder noted on ultrasound. Possible cholecystitis. PLAN: -Patient is tentatively scheduled for laparoscopic cholecystectomy tomorrow -Patient scheduled for HIDA scan -Keep patient n.p.o. -Continue IV fluids -Continue pain management -Continue antibiotics Physician Food And Beverage Lead note has been reviewed by physician. Signing provider agrees with the documented findings, assessment, and plan of care. Past Medical History Past Medical History: GERD/Reflux, Hypertension, Osteoarthritis (OA) Additional Past Medical History / Comment(s): Umbilical hernia. Some hearing loss. History of Any Multi-Drug Resistant Organisms: None Reported Past Surgical History: Hernia Repair Additional Past Surgical History / Comment(s): Planter warts as child, mass removed from right hand 09/28/23, lipoma removed from posterior neck 10/20/23. Cyst Hand. Past Anesthesia/Blood Transfusion Reactions: No Reported Reaction Past Psychological History: No Psychological Hx Reported Smoking Status: Former smoker Past Alcohol Use History: Occasional Past Drug Use History: None Reported - Past Family History Mother Family Medical History: Dementia Medications and Allergies Home Medications Medication Instructions Recorded Confirmed Type Atorvastatin [Lipitor] 20 mg PO DAILY 10/14/23 07/10/24 History amLODIPine [Norvasc] 5 mg PO DAILY 10/14/23 07/10/24 History Allergies Allergy/AdvReac Type Severity Reaction Status Date / Time mussels Allergy severe Verified 07/10/24 10:34 vomiting that stretched the muscles&veins in my neck Surgical - Exam Vital Signs Temp Pulse Resp BP Pulse Ox 98.3 F 71 20 158/86 96 07/10/24 10:02 07/10/24 10:02 07/10/24 10:02 07/10/24 10:02 07/10/24 10:02 Results - Labs 07/10/24 10:27 07/10/24 10:27 Abnormal Lab Results - Last 24 Hours (Table) 07/10/24 07/10/24 Range/Units 10:27 10:59 Chloride 109 H (98-107) mmol/L Glucose 101 H (74-99) mg/dL AST 16 L (17-59) U/L Total Protein 6.2 L (6.3-8.2) g/dL Urine Blood Trace H (Negative) Urine Mucus Moderate H (None) /hpf Diabetes panel 07/10/24 Range/Units 10:27 Sodium 141 (137-145) mmol/L Potassium 4.2 (3.5-5.1) mmol/L Chloride 109 H (98-107) mmol/L Carbon Dioxide 28 (22-30) mmol/L BUN 13 (9-20) mg/dL Creatinine 0.95 (0.66-1.25) mg/dL Glucose 101 H (74-99) mg/dL Calcium 9.2 (8.4-10.2) mg/dL AST 16 L (17-59) U/L ALT 17 (4-49) U/L Alkaline Phosphatase 82 (38-126) U/L Total Protein 6.2 L (6.3-8.2) g/dL Albumin 3.7 (3.5-5.0) g/dL Calcium panel 07/10/24 Range/Units 10:27 Calcium 9.2 (8.4-10.2) mg/dL Albumin 3.7 (3.5-5.0) g/dL Pituitary panel 07/10/24 Range/Units 10:27 Sodium 141 (137-145) mmol/L Potassium 4.2 (3.5-5.1) mmol/L Chloride 109 H (98-107) mmol/L Carbon Dioxide 28 (22-30) mmol/L BUN 13 (9-20) mg/dL Creatinine 0.95 (0.66-1.25) mg/dL Glucose 101 H (74-99) mg/dL Calcium 9.2 (8.4-10.2) mg/dL Adrenal panel 07/10/24 Range/Units 10:27 Sodium 141 (137-145) mmol/L Potassium 4.2 (3.5-5.1) mmol/L Chloride 109 H (98-107) mmol/L Carbon Dioxide 28 (22-30) mmol/L BUN 13 (9-20) mg/dL Creatinine 0.95 (0.66-1.25) mg/dL Glucose 101 H (74-99) mg/dL Calcium 9.2 (8.4-10.2) mg/dL Total Bilirubin 1.0 (0.2-1.3) mg/dL AST 16 L (17-59) U/L ALT 17 (4-49) U/L Alkaline Phosphatase 82 (38-126) U/L Total Protein 6.2 L (6.3-8.2) g/dL Albumin 3.7 (3.5-5.0) g/dL
[2024-07-10] MEDS: PIPERACILLIN-TAZOBACTAM 3.375 GM in SODIUM CHLORIDE 0.9% 100 ML IVPB SCH (16:00)
[2024-07-11 06:26] LABS: Basophils % (A) 0 %; Eosinophils # (A) 0.2 k/uL (0-0.7); Eosinophils % (A) 3 %; HGB 14.4 gm/dL (13.0-17.5); Lymphocytes # (A) 1.5 k/uL (1.0-4.8); Lymphocytes % (A) 23 %; MCH 30.8 pg (25.0-35.0); MCHC 33.4 g/dL (31.0-37.0); MCV 92.2 fL (80.0-100.0); Mean Platelet Volume 7.7; Monocytes # (A) 0.4 k/uL (0-1.0); Monocytes % (A) 6 %; Neutrophils # (A) 4.2 k/uL (1.3-7.7); Neutrophils % (A) 65 %; Platelet Count 256 k/uL (150-450); RBC 4.67 m/uL (4.30-5.90); RDW 13.2 % (11.5-15.5); WBC 6.5 k/uL (3.8-10.6)
[2024-07-11 06:59] LABS: ALT 15 U/L (4-49); AST 16 U/L (17-59); African American GFR (CKD) 89 (>60 ml/min/1.73 sqM); Albumin 3.3 g/dL (3.5-5.0); Albumin/Globulin Ratio 1.4; Alkaline Phosphatase 79 U/L (38-126); Anion Gap 6 mmol/L; Blood Urea Nitrogen 11 mg/dL (9-20); Calcium 8.9 mg/dL (8.4-10.2); Carbon Dioxide 26 mmol/L (22-30); Chloride 108 mmol/L (98-107); Globulin 2.3 g/dL; Glucose 97 mg/dL (74-99); Non-African American GFR(CKD) 77 (>60 ml/min/1.73 sqM); Potassium 4.2 mmol/L (3.5-5.1); Sodium 140 mmol/L (137-145); Total Bilirubin 1.4 mg/dL (0.2-1.3); Total Protein 5.6 g/dL (6.3-8.2)
--- NOTE | 2024-07-11 08:21 | NM ---
EXAMINATION TYPE: NM hepatobiliary w CCK DATE OF EXAM: 07/11/2024 8:14 AM COMPARISON: Ultrasound 07/10/2024 CLINICAL INDICATION:Male, 69 years old with history of pain; TECHNIQUE: The patient was given 5.21 mCi of Technetium 99m-Mebrofenin as a radiotracer and multiple scintigraphic images were obtained of the abdomen. Gallbladder function was also assessed after the administration of 2.18 mcg of Kinevac and additional scintigraphic images were obtained of the abdome n. A region of interest was drawn over the gallbladder and a timing activity curve was generated. The gallbladder ejection fraction was calculated. Kinevac: 2.18 mcg FINDINGS: Normal uptake of radiotracer was identified within the liver with excretion into the hepatic and comm on biliary ducts within 12 min. There was normal progressive washout of the liver over the course of the study. Radiotracer uptake within the gallbladder at 22 minutes as well as small bowel activity wa s identified at 16 minutes. Maximum calculated gallbladder ejection fraction is: 79% at 24minutes (Normal gallbladder ejection fraction is > 35%) IMPRESSION: 1. Normal hepatobiliary scan. 2. Normal ejection fraction. [facility], , 07/11/2024 8:19 AM
[2024-07-11] MEDS: IV FLUID CONTINUATION 1,000 ML IV ONE (14:12)
[2024-07-11] MEDS: ONDANSETRON 4 MG/2 ML VIAL IVP PRN (14:31)
[2024-07-11] MEDS: HEPARIN SODIUM,PORCINE 5,000 UNIT/ML 1 ML VIAL SQ STA (15:04)
[2024-07-11] MEDS ORDERED: fentaNYL (PF) 50 MCG/ML 2 ML AMP ONE (15:05)
[2024-07-11] MEDS ORDERED: PROPOFOL 10 MG/ML 20 ML VIAL IV ONE (15:05)
[2024-07-11] MEDS ORDERED: ROCURONIUM 10 MG/ML (5 ML VIAL) IV ONE (15:05)
[2024-07-11] MEDS ORDERED: KETOROLAC 15 MG/ML 1 ML VIAL ONE (15:05)
[2024-07-11] MEDS ORDERED: SUCCINYLCHOLINE CHLORIDE 200 MG/10 ML VIAL IV ONE (15:05)
[2024-07-11] MEDS ORDERED: LIDOCAINE 1% INJ 10MG/ML (20 ML MDV) ONE (15:05)
[2024-07-11] MEDS ORDERED: GLYCOPYRROLATE 0.2 MG/ML 2 ML VIAL ONE (15:05)
[2024-07-11] MEDS ORDERED: PHENYLEPHRINE-0.9% NACL SYG 1,000 MCG/10 ML SYRINGE ONE (15:05)
[2024-07-11] MEDS ORDERED: NEOSTIGMINE 1 MG/ML 10 ML VIAL ONE (15:05)
[2024-07-11] MEDS: BUPIVACAINE (PF) 0.25% 30 ML VIAL SQ ONE ×2 (15:33)
--- NOTE | 2024-07-11 15:53 | P.PN ---
Subjective Progress Note Date: 07/11/24 CHIEF COMPLAINT: Right upper quadrant abdominal pain HISTORY OF PRESENT ILLNESS: Patient continues to report right upper quadrant abdominal pain. HIDA scan reported normal hepatobiliary scan with ejection fraction of 79%. Results reviewed with Dr. Monk and was an EF of 79% he felt the patient had a hyperkinetic gallbladder. Vital stable. WBC 6.5 Hgb 14.4 total bilirubin 1.4 AST 16 ALT 15 alk phos 79 PHYSICAL EXAM: VITAL SIGNS: Reviewed. GENERAL: Well-developed in no acute distress. HEENT: No sclera icterus. Extraocular movements grossly intact. Moist buccal mucosa. Head is atraumatic, normocephalic. ABDOMEN: Soft. Nondistended. Right upper quadrant tenderness with palpation NEUROLOGIC: Alert and oriented. Cranial nerves II through XII grossly intact. ASSESSMENT: 1. Right upper quadrant abdominal pain with distended gallbladder noted on ultrasound and hyperkinetic gallbladder on HIDA scan PLAN: -Patient scheduled for laparoscopic cholecystectomy today with Dr. Monk Physician Busgirl note has been reviewed by physician. Signing provider agrees with the documented findings, assessment, and plan of care. Objective - Vital Signs Vital signs: Vital Signs Temp 97.7 F 07/11/24 08:35 Pulse 69 07/11/24 08:35 Resp 16 07/11/24 08:35 BP 146/81 07/11/24 08:35 Pulse Ox 95 07/11/24 08:35 FiO2 Intake & Output 07/10/24 07/11/24 07/11/24 18:59 06:59 18:59 Weight 108.862 kg Other: Voiding Method Toilet Toilet # Voids 2 - Labs CBC & Chem 7: 07/11/24 05:23 07/11/24 05:23 Labs: Abnormal Lab Results - Last 24 Hours (Table) 07/11/24 Range/Units 05:23 Chloride 108 H (98-107) mmol/L Total Bilirubin 1.4 H (0.2-1.3) mg/dL AST 16 L (17-59) U/L Total Protein 5.6 L (6.3-8.2) g/dL Albumin 3.3 L (3.5-5.0) g/dL
[2024-07-11] MEDS: LACTATED RINGERS 1,000 ML IV ONE (16:08)
[2024-07-11] MEDS ORDERED: HYDROmorphone 1 MG/ML 1 ML SYRINGE IVP PRN (16:23)
[2024-07-11] MEDS ORDERED: NALOXONE 0.4 MG/ML 1 ML VIAL IV PRN (16:23)
[2024-07-11] MEDS ORDERED: METOCLOPRAMIDE 5 MG/ML 2 ML VIAL IVP PRN (16:23)
[2024-07-11] MEDS ORDERED: ACETAMINOPHEN TAB 325 MG TAB PO PRN (16:23)
--- NOTE | 2024-07-11 16:23 | P.OP ---
Date of Procedure: 07/11/24 Preoperative Diagnosis: Cholecystitis Postoperative Diagnosis: Cholelithiasis Cholecystitis Appendicitis Procedure(s) Performed: Laparoscopic cholecystectomy Laparoscopic appendectomy Anesthesia: BEATA Surgeon: Lars Monk Estimated Blood Loss (ml): 15 Pathology: other (Gallbladder, appendix) Condition: stable Disposition: PACU Description of Procedure: The patient was placed on the operating table. The patient received a general endotracheal tube anesthesia. The patients abdomen was prepped and draped in the usual sterile fashion. Through an infraumbilical stab incision, the fascia of the anterior abdominal wall was grasped with a pair of Kochers and then the Veress needle was placed in the peritoneal cavity. Position of the Veress needle was confirmed with positive drop test. The abdomen was then insufflated. After adequate insufflation, the 10 mm trocar was placed in the peritoneal cavity. Following this the laparoscope was placed in the peritoneal cavity. The patient was placed in the head-up, right side up position and then a 5 mm trocar was placed in the right lateral and right subcostal position under direct visualization. A 8 mm trocar was placed in the epigastric position. The gallbladder was grasped in the fundus and infundi bulum. Traction on the gallbladder was placed in the lateral and the cephalad positions. The triangle of Calot was visualized.. The cystic duct was bluntly dissected until the union of the cystic duct and common bile duct was seen. A critical view of safety was achieved. The cystic duct was then divided and sealed with the Harmonic scissors. A PDS Endoloop was then placed throughout the cystic duct stump. The cystic artery divided and sealed with the Harmonic scissors. The gallbladder was then removed from the liver bed using Harmonic scissors. The gallbladder was then extracted through the epigastric port site. Operative field was checked for any bleeding spots and Harmonic scissors was used to coagulate the liver bed. The abdomen was irrigated. At the lateral edge of the liver there was noted to be some indurated fat. This was peeled back. The patient had a high riding appendix. There was evidence of appendicitis. The appendix was inflamed and adherent to the cecum. The appendix was in a retroverted position on the anterior wall. Using blunt sharp/electrocautery the appendix was dissected off of the wall of the cecum. Care was taken identified preserve the cecal wall. At this point the harmonic scissors used to divide the mesentery appendix. And then the appendectomy is performed by placing an Endoloop around the appendix. And then dividing the appendix with the harmonic scissors. The specimen sent in an Endo Catch bag and brought through the epigastric trocar site. The abdomen is irrigated again. The trocars were removed. The skin was closed using interrupted 3-0 Vicryl suture. Dermabond dressing were applied. The patient tolerated the procedure well.
[2024-07-11] MEDS: HYDROmorphone 0.5 MG/0.5 ML SYRINGE IVP PRN (16:28)
[2024-07-11] MEDS: HYDROmorphone 0.5 MG/0.5 ML SYRINGE IVP ONE (16:37)
[2024-07-11] MEDS: fentaNYL (PF) 50 MCG/ML 2 ML AMP IVP PRN (17:11)
[2024-07-11] MEDS: KETOROLAC 15 MG/ML 1 ML VIAL IVP SCH (17:54)
[2024-07-11] MEDS: LACTATED RINGERS 1,000 ML IV SCH (18:02)
[2024-07-11] MEDS: HYDROmorphone 0.5 MG/0.5 ML SYRINGE IVP STA (18:03)
[2024-07-11] MEDS: HYDROcodone/APAP 5-325MG 1 EACH TAB PO PRN (21:28)
[2024-07-12 08:37] LABS: Basophils # (A) 0.02 X 10*3/uL (0.00-0.10); Basophils % (A) 0.3 %; Eosinophils # (A) 0.08 X 10*3/uL (0.04-0.35); Eosinophils % (A) 1.1 %; HCT 40.3 % (39.6-50.0); HGB 13.5 g/dL (13.0-17.0); Lymphocytes # (A) 1.57 X 10*3/uL (0.90-5.00); Lymphocytes % (A) 21.8 %; MCH 30.2 pg (27.0-32.0); MCHC 33.5 g/dL (32.0-37.0); MCV 90.2 FL (80.0-97.0); Mean Platelet Volume 10.2 FL (9.5-12.2); Monocytes # (A) 0.76 X 10*3/uL (0.20-1.00); Monocytes % (A) 10.5 %; NRBC Per 100 WBC 0 X 10*3/uL (0.00-0.01); Neutrophils # (A) 4.76 X 10*3/uL (1.80-7.70); Platelet Count 251 X 10*3/uL (140-440); RBC 4.47 X 10*6/uL (4.40-5.60); WBC 7.21 X 10*3/uL (4.50-10.00)
[2024-07-12] MEDS: ENOXAPARIN 40 MG/0.4 ML SYRINGE SQ SCH (08:49)
[2024-07-12 09:00] LABS: ALT 19 U/L (10-49); AST 16 U/L (14-35); Albumin 3.5 g/dL (3.8-4.9); Albumin/Globulin Ratio 1.94 Ratio (1.60-3.17); Alkaline Phosphatase 90 U/L (41-126); BUN/Creat Ratio 12.33 Ratio (12.00-20.00); Blood Urea Nitrogen 14.8 mg/dL (9.0-27.0); Calcium 8.4 mg/dL (8.7-10.3); Chloride 106 mmol/L (96-109); Globulin 1.8 g/dL (1.6-3.3); Glucose 92 mg/dL (70-110); Potassium 4.1 mmol/L (3.5-5.5); Sodium 139 mmol/L (135-145); Total Protein 5.3 g/dL (6.2-8.2)
--- NOTE | 2024-07-12 11:27 | P.PN ---
Subjective Progress Note Date: 07/12/24 CHIEF COMPLAINT: Right upper quadrant abdominal pain HISTORY OF PRESENT ILLNESS: Patient is postop day #1 status post laparoscopic cholecystectomy and appendectomy. Patient reports his pain is better than last night and controlled. He denies any nausea or vomiting. He is sitting at bedside chair. He is having flatus. Afebrile. WBC 7.21 Hgb 13.5 total bili 1.0 LFTs normal Patient seen and examined with Dr. Monk PHYSICAL EXAM: VITAL SIGNS: Reviewed. GENERAL: Well-developed in no acute distress. ABDOMEN: Soft. Nondistended. Incision sites clean dry and intact NEUROLOGIC: Alert and oriented. Cranial nerves II through XII grossly intact. ASSESSMENT: 1. Cholelithiasis, cholecystitis and appendicitis PLAN: -Advance diet to full liquids -Continue another 24 hours of IV antibiotics -Encourage patient to ambulate in hallway -Incentive spirometer ordered -Anticipate discharge tomorrow -DVT prophylaxis Lovenox Physician Underground Truck Operator note has been reviewed by physician. Signing provider agrees with the documented findings, assessment, and plan of care. Objective - Vital Signs Vital signs: Vital Signs Temp 97.6 F 07/12/24 07:00 Pulse 66 07/12/24 07:00 Resp 16 07/12/24 07:00 BP 110/69 07/12/24 07:00 Pulse Ox 91 L 07/12/24 07:00 FiO2 Intake & Output 07/11/24 07/12/24 07/12/24 18:59 06:59 18:59 Intake Total 1300 Output Total 20 Balance 1280 Weight 108.8 kg Intake: IV 1300 Output: Estimated Blood Loss 20 Other: Voiding Method Toilet Toilet Toilet # Voids 1 1 - Labs CBC & Chem 7: 07/12/24 04:08 07/12/24 04:08 Labs: Abnormal Lab Results - Last 24 Hours (Table) 07/12/24 Range/Units 04:08 Calcium 8.4 L (8.7-10.3) mg/dL Total Protein 5.3 L (6.2-8.2) g/dL Albumin 3.5 L (3.8-4.9) g/dL
[2024-07-12] MEDS: ATORVASTATIN 20 MG TAB PO SCH (16:56)
[2024-07-13 07:25] VITALS: BP 150/77; PULSE 67; RESP 19; TEMP 98
[2024-07-13 08:44] LABS: Basophils # (A) 0.03 X 10*3/uL (0.00-0.10); Basophils % (A) 0.4 %; Eosinophils # (A) 0.33 X 10*3/uL (0.04-0.35); Eosinophils % (A) 4.7 %; HCT 41.1 % (39.6-50.0); HGB 13.7 g/dL (13.0-17.0); Lymphocytes # (A) 1.75 X 10*3/uL (0.90-5.00); Lymphocytes % (A) 24.9 %; MCH 29.9 pg (27.0-32.0); MCHC 33.3 g/dL (32.0-37.0); MCV 89.7 FL (80.0-97.0); Mean Platelet Volume 10.1 FL (9.5-12.2); Monocytes # (A) 0.81 X 10*3/uL (0.20-1.00); Monocytes % (A) 11.5 %; NRBC Per 100 WBC 0 X 10*3/uL (0.00-0.01); Neutrophils % (A) 58.4 %; Platelet Count 259 X 10*3/uL (140-440); RBC 4.58 X 10*6/uL (4.40-5.60); RDW 12.9 % (11.5-14.5); WBC 7.03 X 10*3/uL (4.50-10.00)
--- NOTE | 2024-07-13 11:33 | P.DS ---
Providers Date of admission: 07/10/24 13:33 Expected date of discharge: 07/13/24 Attending physician: Lars Monk Primary care physician: Deni Wright Hospital Course: Discharge diagnosis 1. Cholelithiasis, cholecystitis and appendicitis Hospital course This is a 69-year-old male who presented to the hospital with evidence of right upper quadrant abdominal pain that radiated to his back. Gallbladder ultrasound had reported a fatty liver and distended gallbladder. Patient is status post laparoscopic cholecystectomy and appendectomy. Patient tolerated surgery well. His pain is controlled. He is tolerating diet. He is having flatus. He has been up and ambulating. He is afebrile. He is stable for discharge. Please refer to chart for any further details. Physician Teachers Aide note has been reviewed by physician. Signing provider agrees with the documented findings, assessment, and plan of care. Patient Condition at Discharge: Stable Plan - Discharge Summary New Discharge Prescriptions: New Ibuprofen [Motrin] 600 mg PO Q8HR PRN #30 tab PRN Reason: Pain HYDROcodone/APAP 5-325MG [[place] 5-325] 1 tab PO Q6HR PRN 3 Days #12 tab PRN Reason: Pain Amoxic-Pot Clav 875-125Mg [Augmentin 875-125] 1 tab PO Q12HR 10 Days #20 tab Docusate [Colace] 100 mg PO BID #30 capsule Continue amLODIPine [Norvasc] 5 mg PO DAILY Atorvastatin [Lipitor] 20 mg PO DAILY Discharge Medication List Atorvastatin [Lipitor] 20 mg PO DAILY 10/14/23 [History] amLODIPine [Norvasc] 5 mg PO DAILY 10/14/23 [History] Amoxic-Pot Clav 875-125Mg [Augmentin 875-125] 1 tab PO Q12HR 10 Days #20 tab 07/13/24 [Rx] Docusate [Colace] 100 mg PO BID #30 capsule 07/13/24 [Rx] HYDROcodone/APAP 5-325MG [[place] 5-325] 1 tab PO Q6HR PRN 3 Days #12 tab 07/13/24 [Rx] Ibuprofen [Motrin] 600 mg PO Q8HR PRN #30 tab 07/13/24 [Rx] Follow up Appointment(s)/Referral(s): Deni Wright MD [Primary Care Provider] - 1-2 days Lars Monk MD [STAFF PHYSICIAN] - 1 Week Activity/Diet/Wound Care/Special Instructions: No driving while taking [place] Shower daily. No bath soaks x 2 weeks Light activity until seen by surgeon Discharge Disposition: HOME SELF-CARE
== END 2024-07-13 12:15 | disposition home or self-care (01) ==
LOC: EC 09:53 → 6NMEDSUR 13:33
PROVIDERS: ADMIT Surgery; ATTEND Surgery
DX: K81.1 Chronic cholecystitis (principal); K37 Unspecified appendicitis; K76.0 Fatty (change of) liver, not elsewhere classified; I10 Essential (primary) hypertension; K21.9 Gastro-esophageal reflux disease without esophagitis; Z87.891 Personal history of nicotine dependence; Z79.899 Other long term (current) drug therapy
CPT/HCPCS: 47562; 44979; 96365; 96366 ×4; 96372; 99285; 36415; 88304; 80053 ×3; 83605; 83690; 85025 ×4; 81001; 76705; 78227; G0378 ×4; A9537; J2543 ×4; J0330; J1644; J2710; J2405; J2805; J2003; J1650; J3010; J1885 ×3; J2704; J1171 ×2; J2371; J0665; J1596

== ENCOUNTER → 2024-09-04 | Outpatient (CLI) | payer MEDICARE ==
[2024-09-04 12:41] LABS: African American GFR (CKD) >90 (>60 ml/min/1.73 sqM); Blood Urea Nitrogen 15 mg/dL (9-20); Non-African American GFR(CKD) 79 (>60 ml/min/1.73 sqM)
--- NOTE | 2024-09-04 14:14 | CT ---
"EXAMINATION TYPE: CT abdomen pelvis w con DATE OF EXAM: 09/04/2024 2:03 PM COMPARISON: None. CLINICAL INDICATION: Male, 69 years old with history of K36 APPENDICITIS; possible appy TECHNIQUE: CT scan of the abdomen pelvis is performed with IV Contrast, patient injected with 100 mL of Isovue [address] DLP: 1843 mGycm Automated exposure control for dose reduction was used. FINDINGS: LUNG BASES- No significant abnormality is appreciated. LIVER/GB- reduced attenuation in the liver compatible with hepatic steatosis. Trace amount of fluid in the gallbladder fossa with surgical clip. No discrete abscess identified. Findings could represen t residual postoperative blood product. Tiny amount of bile not excluded. PANCREAS- No gross abnormality is seen. SPLEEN- No gross abnormality is seen. ADRENALS- No gross abnormality is seen. KIDNEYS/BLADDER- no hydronephrosis nephrolithiasis or renal mass. BOWEL- nonspecific gas pattern with no obstruction. Mild induration along the right colon. Appendix is normal. There is moderate diverticulosis. LYMPH NODES- No greater than 1cm abdominal or pelvic lymph nodes are appreciated. OSSEOUS STRUCTURES- multilevel hypertrophic and degenerative changes of the spine. OTHER- there is a large fat-containing left inguinal and left anterior abdominal wall fat-containing hernia. No evidence of inflammation. IMPRESSION: 1. Postcholecystectomy. There is mild induration of fat along the right paracolic gutter a trace amou nt of fluid within the gallbladder fossa and paracolic gutter which could be postoperative. Correlate clinically. A mild right-sided colitis not excluded. 2. Normal appendix. 3. Large fat-containing left lateral wall and inguinal fat-containing hernia but no evidence of infla mmatory changes. A Yellow level critical message alert has been initiated for Lars Monk MD via the [employer] | Critical Results System on 09/04/2024 2:10 PM. This message alert has been sent to Lars villegas MD via the preferences provided by the clinician for the receipt of Radiology Critical Findings. Willard essage ID [id number]. [facility], , 09/04/2024 2:12 PM"
== END | disposition home or self-care (01) ==
LOC: RADCTMAIN 11:38
PROVIDERS: ATTEND Surgery
DX: K36 Other appendicitis (principal); K40.20 Bilateral inguinal hernia, without obstruction or gangrene, not specified as recurrent; Z90.49 Acquired absence of other specified parts of digestive tract
CPT/HCPCS: 82565; 84520; 74177; 36415; Q9967

== ENCOUNTER → 2024-09-25 | Outpatient (CLI) | payer MEDICARE ==
[2024-09-25 15:46] LABS: Basophils # (A) 0.04 X 10*3/uL (0.00-0.10); Basophils % (A) 0.5 %; Eosinophils # (A) 0.32 X 10*3/uL (0.04-0.35); Eosinophils % (A) 3.8 %; HCT 46.4 % (39.6-50.0); HGB 15.5 g/dL (13.0-17.0); Lymphocytes # (A) 2.86 X 10*3/uL (0.90-5.00); Lymphocytes % (A) 33.9 %; MCH 29.5 pg (27.0-32.0); MCHC 33.4 g/dL (32.0-37.0); MCV 88.4 FL (80.0-97.0); Mean Platelet Volume 10.2 FL (9.5-12.2); Monocytes # (A) 0.84 X 10*3/uL (0.20-1.00); NRBC Per 100 WBC 0 X 10*3/uL (0.00-0.01); Neutrophils # (A) 4.35 X 10*3/uL (1.80-7.70); Neutrophils % (A) 51.4 %; Platelet Count 259 X 10*3/uL (140-440); RBC 5.25 X 10*6/uL (4.40-5.60); RDW 13.2 % (11.5-14.5); WBC 8.44 X 10*3/uL (4.50-10.00)
== END | disposition home or self-care (01) ==
LOC: LABPAT 11:24
PROVIDERS: ATTEND Surgery
DX: Z01.818 Encounter for other preprocedural examination (principal); K40.90 Unilateral inguinal hernia, without obstruction or gangrene, not specified as recurrent
CPT/HCPCS: 36415; 85025; 93005

== ENCOUNTER → 2024-10-03 | Outpatient (CLI) | payer MEDICARE | END | disposition home or self-care (01) | LOC: LABPAT 15:01 | PROVIDERS: ATTEND Surgery | DX: Z01.818 Encounter for other preprocedural examination (principal); K40.90 Unilateral inguinal hernia, without obstruction or gangrene, not specified as recurrent | CPT/HCPCS: 86850; 86900; 86901 ==

== ENCOUNTER 2024-10-16 05:33 | Day surgery (SDC) | payer MEDICARE ==
[~2024-10-16 05:33] MED LIST changes: +ACETAMINOPHEN TAB 500 MG TAB PO PRN; -DEXAMETHASONE SOD PHOSPHATE 4 MG/ML 1 ML VIAL IV ONE; -FAMOTIDINE 20 MG/2 ML VIAL IV PRN; +HEPARIN SODIUM,PORCINE 5,000 UNIT/ML 1 ML VIAL SQ PRN; -HYDROmorphone 0.5 MG/0.5 ML SYRINGE IVP PRN; -LACTATED RINGERS 1,000 ML IV SCH; -ONDANSETRON 4 MG/2 ML VIAL IVP ONE; -Pre Op ABX Message 1 EACH MISC MISCELLANE ONE
[2024-10-16] MEDS ORDERED: LIDOCAINE 1% (10MG/ML) FOR IV START INTRADERMA PRN (06:11)
[2024-10-16] MEDS ORDERED: fentaNYL (PF) 50 MCG/ML 2 ML AMP IVP PRN (06:11)
[2024-10-16] MEDS ORDERED: MIDAZOLAM 2 MG/2 ML VIAL IV PRN (06:11)
[2024-10-16] MEDS: ONDANSETRON 4 MG/2 ML VIAL IVP ONE (06:54)
[2024-10-16] MEDS: LACTATED RINGERS 1,000 ML IV SCH (06:54)
[2024-10-16] MEDS: DEXAMETHASONE SOD PHOSPHATE 4 MG/ML 1 ML VIAL IV ONE (06:54)
[2024-10-16] MEDS: ACETAMINOPHEN TAB 500 MG TAB PO PRN (06:54)
[2024-10-16] MEDS: HEPARIN SODIUM,PORCINE 5,000 UNIT/ML 1 ML VIAL SQ PRN (06:56)
--- NOTE | 2024-10-16 07:32 | P.GSHP ---
History of Present Illness H&P Date: 10/16/24 Chief Complaint: Left inguinal hernia Is a 69-year-old male who presents today for laparoscopic robotic repair of left inguinal hernia. Patient developed a tender mass in his left groin over the last several months. Patient CT scan shows evidence of a large incarcerated le ft inguinal hernia with fat. Past Medical History Past Medical History: GERD/Reflux, Hyperlipidemia, Hypertension, Osteoarthritis (OA), Sleep Apnea/CPAP/BIPAP Additional Past Medical History / Comment(s): Some hearing loss. left inguinal hernia. wears cpap. Recent ? Noro virus. recovering and has been in touch with Dr Monk History of Any Multi-Drug Resistant Organisms: None Reported Past Surgical History: Cholecystectomy, Hernia Repair, Orthopedic Surgery Additional Past Surgical History / Comment(s): Planter warts as child, mass removed from right hand 09/28/23, lipoma removed from posterior neck 10/20/23. Cyst Hand. colonoscopy, Rt meniscus repair Past Anesthesia/Blood Transfusion Reactions: No Reported Reaction Additional Past Anesthesia/Blood Transfusion Reaction / Comment(s): no blood transfusion Past Psychological History: No Psychological Hx Reported Smoking Status: Former smoker Past Alcohol Use History: Occasional Additional Past Alcohol Use History / Comment(s): Quit smoking at age 18, smoked as a teenager. Past Drug Use History: None Reported - Past Family History Mother Family Medical History: Dementia Medications and Allergies Home Medications Medication Instructions Recorded Confirmed Type Atorvastatin [Lipitor] 20 mg PO DAILY 10/14/23 10/16/24 History amLODIPine [Norvasc] 10 mg PO DAILY 10/14/23 10/16/24 History Otc Omeprazole 1 tab PO DAILY 10/04/24 10/16/24 History Unk Multi Vitamin 1 tab PO DAILY 10/04/24 10/16/24 History Unk Vitamin D3 1 tab PO DAILY 10/04/24 10/16/24 History Allergies Allergy/AdvReac Type Severity Reaction Status Date / Time mussels Allergy severe Verified 10/16/24 06:29 vomiting that stretched the muscles&veins in my neck Surgical - Exam Vital Signs Temp Pulse Resp BP Pulse Ox 97.8 F 70 16 135/73 96 10/16/24 06:30 10/16/24 06:30 10/16/24 06:30 10/16/24 06:30 10/16/24 06:30 - General well developed, well nourished, no distress - Eyes PERRL - ENT normal pinna - Neck no masses - Respiratory normal expansion - Cardiovascular Rhythm: regular - Abdomen Abdomen: soft, non tender Hernia: inguinal (Large left inguinal hernia) Assessment and Plan Assessment: Left inguinal hernia. Will perform laparoscopic robotic assisted repair.
[2024-10-16] MEDS: LACTATED RINGERS 1,000 ML IV ONE ×2 (07:34→09:10)
[2024-10-16] MEDS ORDERED: PHENYLEPHRINE 10 MG/ML VIAL ONE (07:36)
[2024-10-16] MEDS ORDERED: fentaNYL (PF) 50 MCG/ML 2 ML AMP ONE (07:36)
[2024-10-16] MEDS ORDERED: SUCCINYLCHOLINE CHLORIDE 200 MG/10 ML VIAL IV ONE (07:36)
[2024-10-16] MEDS ORDERED: PROPOFOL 10 MG/ML 20 ML VIAL IV ONE (07:36)
[2024-10-16] MEDS ORDERED: GLYCOPYRROLATE 0.2 MG/ML 2 ML VIAL ONE (07:36)
[2024-10-16] MEDS ORDERED: LIDOCAINE 1% INJ 10MG/ML (20 ML MDV) ONE (07:36)
[2024-10-16] MEDS ORDERED: NEOSTIGMINE 1 MG/ML 10 ML VIAL ONE (07:36)
[2024-10-16] MEDS ORDERED: ROCURONIUM 10 MG/ML (5 ML VIAL) IV ONE (07:36)
[2024-10-16] MEDS ORDERED: MIDAZOLAM 2 MG/2 ML VIAL ONE (07:36)
[2024-10-16] MEDS: LIDOCAINE 1%-EPI 1:100,000 20 ML VIAL SQ ONE ×2 (07:51→08:01)
[2024-10-16 09:09] VITALS: TEMP 98
[2024-10-16] MEDS: HYDROmorphone 0.5 MG/0.5 ML SYRINGE IVP PRN (09:22)
--- NOTE | 2024-10-16 09:31 | P.OP ---
Date of Procedure: 10/16/24 Preoperative Diagnosis: Large left inguinal hernia Postoperative Diagnosis: Large incarcerated left inguinal hernia Procedure(s) Performed: Diagnostic laparoscopy Open repair of incarcerated left inguinal hernia Excision of lipoma of lipoma Transversus abdominis plane block Anesthesia: BEATA Surgeon: Lars Monk Estimated Blood Loss (ml): 10 Pathology: other (Cord lipoma) Condition: stable Disposition: PACU Operative Findings: Large left inguinal hernia Description of Procedure: W the patient's placed on the operating table in the supine position. The patient received general anesthesia. The patient's abdomen was prepped and draped in usual sterile fashion. The skin was anesthetized 1% local Xylocaine at the incision sites. Using an 11 blade a skin incision was made at the umbilicus. The fascia was grasped with a Ulises and then the peritoneal cavity was entered with the Veress needle. Position of the Veress needle was confirmed with a positive drop test. After adequate insufflation a 5 mm trocar was placed into the peritoneal cavity. The Laparoscope was placed the peritoneal cavity. And a robotic 8 mm trocar was placed in the right lateral position and then another 8 mm robotic trochars placed in the left lateral position. The original 5 mm trocar was exchanged for a 12 mm trocar. The patient was placed in reverse Trendelenburg and then the patient was docked to the robot. Next the peritoneum over top of the hernia was incised and then using blunt and sharp dissection and electrocautery the patient had a very large lipoma. This could not be dissected free laparoscopically. At this point the hernia opening was closed with 2 oh V-Loc suture. The p first was removed and the patient was undocked from the robot. Next, the skin was incised over the left internal ring. The subcutaneous were divided. The fascia external bleak was exposed. The fascia was then opened with a pair of Metzenbaum scissors. The cord structure identified and the rubber Giovani drain in place from the cord structure. The patient had a very large cord lipoma. There is those dissected free. It measured approximately 15 cm diameter. This was sent to pathology. Next using a Prolene hernia mesh system plug the hernia was repaired. The inferior leaf expanded the preperitoneal space. And then the superior leaf attached to the pubic tubercle medially with 2-0 Prolene suture. And then S the fascia external bleak was then closed with 0 Vicryl suture. Cici's fascia closed with 2-0 Vicryl suture. Skin was closed with interrupted 3-0 Monocryl suture. Dermabond was applied. Patient tolerated well. He sent to recovery in stable condition.
[2024-10-16 11:04] VITALS: BP 124/60; PULSE 74; RESP 20
== END 2024-10-16 11:19 | disposition home or self-care (01) ==
LOC: OR 05:33
PROVIDERS: ATTEND Surgery
DX: K40.30 Unilateral inguinal hernia, with obstruction, without gangrene, not specified as recurrent (principal); D17.6 Benign lipomatous neoplasm of spermatic cord; K21.9 Gastro-esophageal reflux disease without esophagitis; I10 Essential (primary) hypertension; G47.30 Sleep apnea, unspecified; E78.5 Hyperlipidemia, unspecified; M19.90 Unspecified osteoarthritis, unspecified site; Z87.891 Personal history of nicotine dependence; Z90.49 Acquired absence of other specified parts of digestive tract; Z98.890 Other specified postprocedural states; Z79.899 Other long term (current) drug therapy
CPT/HCPCS: 86900; 86901; 88304; 86850; 49507; 64488; C1781; J2250; J0330; J1644; J1100; J2710; J0690; J2405; J2003; J3010; J2704; J1171; J2371; J1596